=== PATIENT | male | born 1950 | race Caucasian/White ===

== ENCOUNTER 2022-12-28 09:59 | Outpatient (OUT) | payer MEDICARE, SELFPAY ==
[2022-12-29 04:07] LABS: PSA, Free 0.72 ng/mL; Prostate Specific Ag 2.2 ng/mL (0.0-4.0)
== END 2022-12-28 10:00 | disposition home or self-care (01) ==
LOC: LAB 10:07
PROVIDERS: Visit Provider Urology
DX: R97.20 Elevated prostate specific antigen [PSA] (principal); N40.1 Benign prostatic hyperplasia with lower urinary tract symptoms
CPT/HCPCS: 36415; 84153; 84154

== ENCOUNTER 2023-03-30 08:02 | Outpatient (OUT) | payer MEDICARE, SELFPAY ==
--- NOTE | 2023-03-30 08:07 | ECG_ITS ---
[facility] Test Date: 2023-03-30 Pat Name: MAURO HAWKINS Department: Room: - Gender: Male Certified Technician Specialist: : [id number] Requested By: VISHNU NOGUERA Order Number: [id number] Reading MD: CIRA MATTA Measurements Intervals [place] Rate: 69 P: 14 AL: 161 QRS: 20 QRSD: 98 T: 35 QT: 365 QTc: 394 Interpretive Statements SINUS RHYTHM No previous ECG available for comparison Electronically Signed On 03-31-2023 7:08:09 EDT by CIRA MATTA
--- NOTE | 2023-03-30 08:54 | P.GSHP_ITS ---
History of Present Illness History of Present Illness Chief complaint: BPH with obstruction Narrative: Patient presents for preadmission testing accompanied by his . The patient states he has an elevated PSA and nocturia. He denies Dysuria, hematuria, nausea, vomiting, abdominal pain, fever, or any other complaints. Review of Systems ROS Narrative REVIEW OF SYSTEMS: Negative except as stated in HPI, ten or more systems reviewed. Constitutional: No fever , chills, weakness ENT: No sore throat or epistaxis Cardiovascular: No edema, chest pain, palpitations, or activity intolerance Respiratory: No shortness of breath, cough, or wheezing Musculoskeletal: No joint pain or swelling Gastrointestinal: No abdominal pain, constipation, diarrhea, or vomiting Genitourinary: No dysuria or hematuria Neurological: No numbness, tingling, weakness, or headache Psychiatric: No mood changes PFSH PFS Medical History (Updated 03/30/23 @ 08:57 by Ashwini Paula NP) Benign prostatic hyperplasia with urinary obstruction and other lower urinary tract symptoms ?N40.1 - Benign prostatic hyperplasia with lower urinary tract symptoms (ICD- 10) ?N13.8 - Other obstructive and reflux uropathy (ICD-10) Elevated PSA ?R97.20 - Elevated prostate specific antigen [PSA] (ICD-10) High cholesterol ?E78.00 - Pure hypercholesterolemia, unspecified (ICD-10) Hypertension ?I10 - Essential (primary) hypertension (ICD-10) Prostatitis ?N41.9 - Inflammatory disease of prostate, unspecified (ICD-10) Surgical History (Updated 03/30/23 @ 08:30 by Ashwini Paula NP) H/O Achilles tendon repair ?Z98.890 - Other specified postprocedural states (ICD-10) History of appendectomy ?Z90.49 - Acquired absence of other specified parts of digestive tract (ICD- 10) History of arthroscopy of knee ?Z98.890 - Other specified postprocedural states (ICD-10) History of colonoscopy ?Z98.890 - Other specified postprocedural states (ICD-10) History of hernia repair ?Z98.890 - Other specified postprocedural states (ICD-10) ?Z87.19 - Personal history of other diseases of the digestive system (ICD-10) Family History (Updated 03/30/23 @ 08:30 by Ashwini Paula NP) Other Family history of diabetes mellitus Family history of leukemia Social History (Updated 03/30/23 @ 08:25 by Ashwini Paula NP) Within the past year, how often did you have a drink containing alcohol: monthly or less Smoking status: Former smoker Non-prescribed substance use: denies use Highest level of school completed/degree received: high school graduate Meds Home Medications and Allergies Home Medications Medication Instructions Recorded Confirmed Type amoxicillin 500 mg tablet 500 mg PO Q6H 03/30/23 03/30/23 History ibuprofen 800 mg tablet 800 mg PO TID 03/30/23 03/30/23 History lisinopril 40 mg tablet 40 mg PO DAILY 03/30/23 03/30/23 History multivitamin (Daily Multi-Vitamin 1 tab PO DAILY 03/30/23 03/30/23 History tablet) pravastatin 10 mg tablet 10 mg PO DAILY 03/30/23 03/30/23 History tamsulosin 0.4 mg capsule 0.4 mg PO BID 03/30/23 03/30/23 History turmeric root extract 150 tab PO 03/30/23 History mg-jovi root extract 25 mg chewable tablet Allergies Allergy/AdvReac Type Severity Reaction Status Date / Time No Known Drug Allergies Allergy Verified 03/30/23 08:21 Exam Narrative Exam Narrative: Constitutional: Awake, alert, comfortable, well-appearing, nontoxic, interactive, vital signs as charted Head: Normocephalic, atraumatic Neck: Supple, normal appearance, normal range of motion, no meningeal signs, no lymphadenopathy Respiratory: No respiratory distress, breath sounds clear Cardiovascular: Regular rate and rhythm, strong and regular heart tones Abdomen: Nontender, normal bowel sounds, soft, no CVA tenderness Musculoskeletal: Normal gait, no swelling or edema Skin: No rashes or induration, no lesions, only visible skin inspected Neuro: No neurological deficits, normal sensation Psychiatric: Oriented ?3, normal affect Assessment and Plan Assessment and Plan (1) Elevated PSA: (2) Benign prostatic hyperplasia with urinary obstruction and other lower urinary tract symptoms: Plan Cystoscopy/transurethral resection of the prostate scheduled with Dr. Maradiaga 04/11/2023.
[2023-03-30 08:57] LABS: Basophils Percent Auto 0.7 % (0.2-2.0); Eosinophils Absolute Auto 0.1 10^3/uL (0.0-0.7); Eosinophils Percent Auto 2.1 % (0.9-7.0); Hematocrit 34.8 % (42.0-54.0); Hemoglobin 11.7 g/dL (14.0-18.0); Immature Granulocytes Abs Auto 0.01 10^3/uL (0.00-0.03); Immature Granulocytes Pct Auto 0.2 % (0.0-0.5); Lymphocytes Absolute Auto 1.1 10^3/uL (1.2-3.8); Lymphocytes Percent Auto 25.8 % (20.5-60.0); Mean Corpuscular HGB Conc 33.6 g/dL (29.9-35.2); Mean Corpuscular Hemoglobin 32.2 pg (25.9-34.0); Mean Corpuscular Volume 95.9 fL (80.0-94.0); Mean Platelet Volume 9.1 fL (9.5-13.5); Monocytes Absolute Auto 0.5 10^3/uL (0.3-0.8); Monocytes Percent Auto 10.6 % (1.7-12.0); Neutrophils Absolute Auto 2.6 10^3/uL (1.4-6.5); Neutrophils Percent Auto 60.6 % (43.0-75.0); Platelet Count 214 10^3/uL (150-450); Red Blood Count 3.63 10^6/uL (4.70-6.10); White Blood Count 4.3 10^3/uL (4.0-11.0)
[2023-03-30 09:06] LABS: Anion Gap 8.4; BUN Creatinine Ratio 20.8; Calcium 8.7 mg/dL (8.5-10.1); Carbon Dioxide 26.1 mmol/L (21.0-32.0); Chloride 107 mmol/L (98-107); Estimated GFR (African America >60 (>=60); Estimated GFR (Non-African Ame >60 (>=60); Glucose 88 mg/dL (74-106); Potassium 4.5 mmol/L (3.5-5.1); Sodium 137 mmol/L (136-145)
[2023-03-30 09:18] LABS: Partial Thromboplastin Time 23.7 sec (22.3-36.2); Prothrombin Time 9.8 sec (9.0-11.6)
[2023-03-30 09:20] LABS: INR <0.93
== END 2023-03-30 08:03 | disposition home or self-care (01) ==
PROVIDERS: Visit Provider Urology
DX: Z01.810 Encounter for preprocedural cardiovascular examination (principal); Z01.812 Encounter for preprocedural laboratory examination; N40.1 Benign prostatic hyperplasia with lower urinary tract symptoms; E78.5 Hyperlipidemia, unspecified; R97.20 Elevated prostate specific antigen [PSA]; N13.9 Obstructive and reflux uropathy, unspecified
CPT/HCPCS: 80048; 85025; 85610; 85730; 93005; G0463

== ENCOUNTER 2023-04-28 14:50 | Outpatient (OUT) | payer MEDICARE, SELFPAY | END 2023-04-28 14:51 | disposition home or self-care (01) | LOC: PST 14:50 | PROVIDERS: Visit Provider Urology | DX: Z01.818 Encounter for other preprocedural examination (principal); N40.1 Benign prostatic hyperplasia with lower urinary tract symptoms; E78.5 Hyperlipidemia, unspecified; R97.20 Elevated prostate specific antigen [PSA]; I10 Essential (primary) hypertension ==

== ENCOUNTER 2023-05-04 12:09 | Outpatient (OUT) | payer MEDICARE, SELFPAY ==
--- OUTSIDE RECORDS SUMMARY | 2023-05-18 02:06 | XMS_ITS | CCD ---
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 Name Role Phone Ash MAGANA Primary Care Physician [phone] ROSA TERRAZAS Primary Care Physician Hans NOGUERA Attending Unavailable NOGUERA, Hans Duarte Referring Unavailable NOGUERA, Hans Duarte Attending Unavailable NOGUERA, Hans Duarte Attending Unavailable KLONK, KIMBERLYN R Referring Unavailable NOGUERA, Hans Duarte Attending Unavailable NOGUERA, Hans Duarte Attending Unavailable NOGUERA, Hans Duarte Attending Unavailable NOGUERA, Hans R Attending Unavailable NOGUERA, Hans R Referring Unavailable NOGUERA, Hans R Admitting Unavailable NOGUERA, Hans R Attending Unavailable SIDELL, ROSA W Referring Unavailable SIDELL, ROSA W Admitting Unavailable SIDELL, ROSA W Attending Unavailable SIDELL, ROSA W Admitting Unavailable SIDELL, ROSA W Attending Unavailable SIDELL, ROSA W Referring Unavailable KLONK, KIMBERLYN R Admitting Unavailable KLONK, KIMBERLYN R Attending Unavailable SIDELL, ROSA W Admitting Unavailable SIDELL, ROSA W Attending Unavailable SIDELL, ROSA W Attending Unavailable SIDELL, ROSA W Attending Unavailable SIDELL, ROSA W Attending Unavailable KLONK, KIMBERLYN R Attending Unavailable Allergies Allergy Classification Reported Allergen(s) Allergy Type Date of Onset Reaction(s) Facility (1 source) No Known Medication Allergies; Translations: [No Known Medication Allergies] Propensity to adverse reactions (disorder) [facility] Repository Medications Current Medications Medication Drug Class(es) Dates Sig (Normalized) Sig (Original) doxycycline hyclate 100 mg oral capsule (1 source) Tetracycline-class Drug Start: 11-15-2022 End: 12-15-2022 take 1 capsule by mouth every twelve hours doxycycline hyclate 100 mg Cap 100 mg = 1 cap(s), Oral, q12hr, X 30 day(s), # 60 cap(s), Refills(s) 0, Pharmacy: [facility]/pharmacy #[id number], 175, cm, 11/15/22 10:39:00 EDT, Height/Length Dosing, 102.5, kg, 11/15/22 10:39:00 EDT, Weight Dosing Start Date: 11/15/22 Stop Date: 12/15/22 Status: Ordered lisinopril 40 mg oral tablet (9 sources) Angiotensin Converting Enzyme Inhibitor Start: 12-06-2022 take 1 tablet by mouth once daily lisinopril 40 mg Tab 40 mg = 1 tab(s), Oral, Daily, # 90 tab(s), Refills(s) 1, Pharmacy: [facility]/pharmacy #[id number], 175, cm, 11/15/22 10:39:00 EDT, Height/Length Dosing, 102.5, kg, 11/15/22 10:39:00 EDT, Weight Dosing Start Date: 12/06/22 Status: Ordered Start: 06-09-2022 take 1 tablet by laly th once daily lisinopril 40 mg Tab 40 mg = 1 tab(s), Oral, Daily, # 90 tab(s), Refills(s) 1, Pharmacy: [facility]/pharmacy #[id number], 172.7, cm, 02/24/22 9:13:00 EDT, Height/Length Dosing, 106.3, kg, 02/24/22 9:13:00 EDT, Weight Dosing Start Date: 06/09/22 Status: Ordered Start: 12-14-2021 take 1 tablet by laly th once daily lisinopril 40 mg Tab 40 mg = 1 tab(s), Oral, Daily, # 90 tab(s), Refills(s) 1, Pharmacy: [facility]/pharmacy #[id number], 172.7, cm, 02/27/21 8:15:00 EDT, Height/Length Dosing, 103.8, kg, 02/27/21 8:15:00 EDT, Weight Dosing Start Date: 12/14/21 Status: Ordered nystatin [id number] unt/ml / triamcinolone acetonide 1 mg/ml topical cream (1 source) Polyene Antifungal, Corticosteroid Start: 02-24-2022 nystatin-triamcinolone Top Crm 60 gram 1 rae, Topical, BID, 60 gram, Refill(s) 1, [facility]/pharmacy #[id number], 172.7, cm, 02/24/22 9:13:00 EDT, Height/Length Dosing, 106.3, kg, 02/24/22 9:13:00 EDT, Weight Dosing Start Date: 02/24/22 Status: Ordered pravastatin sodium 10 mg oral tablet (9 sources) HMG-CoA Reductase Inhibitor Start: 12-06-2022 take 1 tablet by mouth once daily pravastatin 10 mg Tab 10 mg = 1 tab(s), Oral, Daily, # 90 tab(s), Refills(s) 1, Pharmacy: [facility]/pharmacy #[id number], 175, cm, 11/15/22 10:39:00 EDT, Height/Length Dosing, 102.5, kg, 11/15/22 10:39:00 EDT, Weight Dosing Start Date: 12/06/22 Status: Ordered Start: 06-09-2022 take 1 tablet by laly th once daily pravastatin 10 mg Tab 10 mg = 1 tab(s), Oral, Daily, # 90 tab(s), Refills(s) 1, Pharmacy: [facility]/pharmacy #[id number], 172.7, cm, 02/24/22 9:13:00 EDT, Height/Length Dosing, 106.3, kg, 02/24/22 9:13:00 EDT, Weight Dosing Start Date: 06/09/22 Status: Ordered Start: 12-07-2021 take 1 tablet by laly once daily pravastatin 10 mg Tab 10 mg = 1 tab(s), Oral, Daily, # 90 tab(s), Refills(s) 1, Pharmacy: [facility]/pharmacy #[id number], 172.7, cm, 02/27/21 8:15:00 EDT, Height/Length Dosing, 103.8, kg, 02/27/21 8:15:00 EDT, Weight Dosing Start Date: 12/07/21 Status: Ordered sildenafil 50 mg oral tablet (5 sources) Phosphodiesterase 5 Inhibitor Start: 07-05-2022 take 1 tablet by mouth once daily as needed sildenafil 50 mg Tab 50 mg = 1 tab(s), Oral, Daily, PRN for erectile dysfunction, # 20 tab(s), Refills(s) 0, Pharmacy: [facility] [id number], 172, cm, 07/05/22 11:33:00 EST, Height/Length Dosing, 103.4, kg, 07/05/22 11:33:00 EST, Weight Dosing Start Date: 07/05/22 Status: Ordered tadalafil 20 mg oral tablet (3 sources) Phosphodiesterase 5 Inhibitor Start: 12-06-2022 take 1 tablet by mouth once daily as needed tadalafil 20 mg Tab 20 mg = 1 tab(s), Oral, Daily, PRN erectile dysfunction, # 10 tab(s), Refills(s) 0, Pharmacy: [facility] [id number], 175, cm, 11/15/22 10:39:00 EDT, Height/Length Dosing, 102.5, kg, 11/15/22 10:39:00 EDT, Weight Dosing Start Date: 12/06/22 Status: Ordered Start: 09-23-2022 take 1 tablet by laly once daily as needed tadalafil 20 mg Tab 20 mg = 1 tab(s), Oral, Daily, PRN erectile dysfunction, # 10 tab(s), Refills(s) 0, Pharmacy: [facility] [id number], 172, cm, 09/23/22 11:20:00 EDT, Height/Length Dosing, 101.5, kg, 09/23/22 11:20:00 EDT, Weight Dosing Start Date: 09/23/22 Status: Ordered tamsulosin hydrochloride 0.4 mg oral capsule (8 sources) alpha-Adrenergic Norberto Start: 11-15-2022 End: 11-10-2023 take 1 capsule by mouth twice daily tamsulosin 0.4 mg Cap 0.4 mg = 1 cap(s), Oral, BID, X 90 day(s), # 180 cap(s), Refills(s) 3, Pharmacy: [facility]/pharmacy #[id number], 175, cm, 11/15/22 10:39:00 EDT, Height/Length Dosing, 102.5, kg, 11/15/22 10:39:00 EDT, Weight Dosing Start Date: 11/15/22 Stop Date: 11/10/23 Status: Ordered Start: 07-05-2022 take 1 capsule by mo [facility] once daily tamsulosin 0.4 mg Cap 0.4 mg = 1 cap(s), Oral, Daily, # 90 cap(s), Refills(s) 0, [id number], 172, cm, 07/05/22 11:33:00 EST, Height/Length Dosing, 103.4, kg, 07/05/22 11:33:00 EST, Weight Dosing Start Date: 07/05/22 Status: Ordered Completed/Discontinued Medications Medication Drug Class(es) Dates Sig (Normalized) Sig (Original) cephalexin 500 mg oral capsule (1 source) Cephalosporin Antibacterial Start: 03-07-2023 take 1 capsule by mouth once daily Keflex 500 mg Cap 500 mg = 1 cap(s), Oral, Daily, Take 1 capsule the day before the procedure and 1 capsule after the procedure, # 2 cap(s), Refills(s) 0, [id number], 175, cm, 02/18/23 12:58:00 EDT, Height/Length Dosing, 98.9, kg, 02/14/23 10:30:00 EDT, Weight Dosing Start Date: 03/07/23 Status: Ordered Problems Problem Classification Problem Date Documented Da te Episodic/Chronic Abdominal pain (12 sources) Right lower quadrant pain; Translations: [Right lower quadrant pain] Onset: 09-07-2022 Episodic Disorders of lipid metabolism (10 sources) Familial hypercholesterolemi a; Translations: [Familial hypercholesterolemi a] Onset: 02-23-2022 Chronic Essential hypertension (10 sources) Essential hypertension; Translations: [Essential (primary) hypertension] Onset: 02-23-2022 Chronic Genitourinary symptoms and ill-defined conditions (20 sources) Dysuria; Translations: [Genitourinary symptoms] Onset: 07-05-2022 02-25-2020 Episodic Hyperplasia of prostate (8 sources) Benign prostatic hypertrophy with outflow obstruction; Translations: [Benign prostatic hyperplasia with lower urinary tract symptoms] Onset: 11-15-2022 Chronic Other ear and sense organ disorders (10 sources) Hearing loss; Translations: [Other specified hearing loss, unspecified ear] Onset: 02-23-2022 Chronic Other injuries and conditions due to external causes (1 source) Injury of left foot; Translations: [Unspecified injury of left foot, initial encounter] Onset: 09-07-2022 Episodic Other male genital disorders (12 sources) Male erectile dysfunction, unspecified; Translations: [Erectile dysfunction] Onset: 07-05-2022 Chronic Other male genital disorders (2 sources) H/O: male genital disorder; Translations: [Personal history of other diseases of male genital organs] Onset: 11-15-2022 Episodic Other male genital disorders (3 sources) History of prostatitis 11-15-2022 Episodic Other nutritional; endocrine; and metabolic disorders (1 source) Obese class II; Translations: [Body mass index (BMI) 35.0-35.9, adult] Onset: 02-24-2022 Chronic Other nutritional; endocrine; and metabolic disorders (1 source) Obesity; Translations: [Other obesity due to excess calories] Onset: 02-23-2022 Chronic Other nutritional; endocrine; and metabolic disorders (9 sources) Body mass index 30+ - obesity 02-24-2022 Chronic Other nutritional; endocrine; and metabolic disorders (9 sources) Simple obesity 02-25-2020 Chronic Other nutritional; endocrine; and metabolic disorders (2 sources) Obese class I; Translations: [Body mass index (BMI) 34.0-34.9, adult] Onset: 07-05-2022 Chronic Other screening for suspected conditions (not mental disorders or infectious disease) (7 sources) Procedure carried out on subject; Translations: [Encounter for screening for other disorder] Onset: 02-23-2022 Episodic Residual codes; unclassified (1 source) Refused procedure - parent's wish; Translations: [Procedure and treatment not carried out because of patient's decision for other reasons] Onset: 02-24-2022 Episodic Screening and history of mental health and substance abuse codes (9 sources) Tobacco smoking behavior - finding 02-25-2020 Chronic Screening and history of mental health and substance abuse codes (10 sources) H/O: Disorder; Translations: [Personal history of nicotine dependence] Onset: 02-23-2022 Episodic Unclassified (6 sources) Injury of left foot 09-07-2022 Unclassified (3 sources) Finding of sensation of bladder 11-15-2022 Results Test Name Value Interpretation Reference Range Facil ity Pathology Noteon 05-13-2023 Pathology Note [id number]#1. 00TIFF Normal [facility] Operative Reporton Operative Report [id number]#1.00TIFF Normal [facility] ECG 12-Leadon 04-01-2023 ECG 12-Lead [id number]#1.00T IFF Normal [facility] Lab Reportson 03-30-2023 Lab Reports [id number]#1.00T IFF Normal [facility] Lab Reports [id number]#1.00T IFF Normal [facility] Consent for Procedure/Surger yon 03-17-2023 Consent for Procedure/Surgery [id number]#1.00TIFF [facility] Consent for Procedure/Surger yon 03-08-2023 Consent for Procedure/Surgery [id number]#1.00TIFF [facility] Consent for Treatmenton 02-27 Consent for Treatment [id number]#1.00TIFF [facility] IntraOperative Documentson 1 IntraOperative Documents [id number]#1.00TIFF [facility] IntraOperative Documents [id number]#1.00TIFF [facility] Main OR Intraoperative Recor don 03-08-2023 Main OR Intraoperative Record IntraOp Document Type FTURO Summary Primary Physician: Hans NOGUERA MD Finalized Date/Time: 03/08/23 12:14:01 Pt. Name: MAURO SILVERIO D.O.B./Sex: 1950 Male Med Rec #: [id number] Physician: Hans NOGUERA MD Financial #: [id number] Pt. Type: O Room/Bed: / Admit/Disch: 03/08/23 09:34:54 - Institution: Case Times FTURO Entry 1 Patient Times In Room 03/08/23 11:59:00 Out Room 03/08/23 12:10:00 Procedure Times Start 03/08/23 12:03:00 Stop 03/08/23 12:06:00 Anesthesia Times Last Modified By: Dulce Ecsobar RN 03/08/23 12:10:19 Case Attendance FTURO Entry 1 Entry 2 Entry 3 Case Attendee CHUCKIE WATKINS, Hans He SHOWCASE TRIMMER, Dulce Ma RN Role Performed Surgeon - Primary Scrub - Primary Handstitching Machine Armhole Feller - Primary Time In 03/08/23 11:59:00 03/08/23 11:59:00 03/08/23 11:59:00 Time Out 03/08/23 12:10:00 03/08/23 12:10:00 03/08/23 12:10:00 Procedure CYSTOSCOPY LOCAL(.) CYSTOSCOPY LOCAL(.) CYSTOSCOPY LOCAL(.) Comments Last Modified By: Dulce Escobar RN, RN, Kimberly Y Barbee RN, Kimberly Y 03/08/23 12:10:20 03/08/23 12:10:20 03/08/23 12:10:20 Surgical Procedures FTURO Entry 1 Procedure Description Procedure CYSTOSCOPY LOCAL Modifiers . Surgeon Description CYSTOSCOPY LOCAL Primary Procedure Yes Primary Surgeon Hans NOGUERA MD Start 03/08/23 12:03:00 Stop 03/08/23 12:06:00 Anesthesia Type Local Surgical Service Urology Wound Class 2 - Clean-Contaminated Last Modified By: Dulce Escobar RN 03/08/23 12:06:53 General Case Data FTURO Pre-Care Text: Classifies surgical wound, implements aseptic technique, initiates traffic control Entry 1 Case Information OR URO 1 FT Case Level None Wound Class 2 - Clean-Contaminated Specialty Urology Preop Diagnosis BPH WITH OBSTRUCTION, Postop Same As Preop Yes INCOMPLETE EMPTYING Postop Diagnosis BPH WITH OBSTRUCTION, Outcomes Met? Yes INCOMPLETE EMPTYING Last Modified By: Dulce Escobar RN 03/08/23 11:57:34 Post-Care Text: The patient is free from signs and symptoms of infection EU IntraOp - FTURO Pre-Care Text: Implements protective measures prior to operative or invasive procedure, confirms identity before the operative or invasive procedure, verifies operative procedure, surgical site, and laterality Entry 1 EU Perioperative Protocols Procedure(s) CYSTOSCOPY LOCAL(.) Patient Identity Birthday, ID Band Verified (select at Check, Patient least 2): Participation Consents / H and P HandP, Surgery/Procedure Operative Site N/A Verified Consent Marking Verified Surgical Site Yes Laterality Verified Yes Verified Procedure Verified Yes Correct Patient Yes Position Verified Availability Equipment, Medication Time Out CHUCKIE WATKINS, Hans Duarte, Verified (If Participants Dulce He CST Applicable) Shawn Motta RN, Kimberly Y Time Out Complete 03/08/23 12:00:00 Allergies Reviewed? Yes Allergies Reviewed Self/Patient With Body Position Supine Prep Area PENIS Prep Agents Betadine Solution Skin. Condition Dry, Warm, Unable to Description UNABLE TO VISUALIZE DUE Visualize TO PATIENT PARTIALLY CLOTHED Additional None Specimens Collected Vitals - EU Blood Pressure 150/80 Pulse 67 bpm Respirations 16 br/min SPO2 97 % EBL 0 IandO - EU Total Intake 0 mL Total Output 0 mL Outcomes Met? Yes Last Modified By: Dulce Escobar RN 03/08/23 12:01:28 Post-Care Text: The patient is free from signs and symptoms of injury caused by extraneous objects Sign Out FTURO Entry 1 Before Patient Leaves OR Nurse verbally Yes Nurse verbally Yes confirms with the confirms with the team the name of team that the procedure(s) instrument, sponge, recorded and needle counts are correct (or N/A) Nurse verbally n/a Nurse verbally Yes confirms with the confirms with the team how the team whether there specimen is labeled are any equipment (including patient problems to be name), if applicable addressed Sign Out Complete 03/08/23 12:06:00 Last Modified By: Dulce Escobar RN 03/08/23 12:06:52 Case Comments Finalized By: Dulce Escobar RN Document Signatures Signed By: Dulce Escobar RN 03/08/23 12:10 Dulce Escobar RN 03/08/23 12:14 Normal [facility] Main OR Preoperative Recordo n 03-08-2023 Main OR Preoperative Record Holding Area Document Type FTURO Summary Primary Physician: Hans NOGUERA MD Finalized Date/Time: 03/08/23 12:00:00 Pt. Name: MAURO SILVERIO /Sex: 1950 Male Med Rec #: [id number] Physician: Hans NOGUERA MD Financial #: [id number] Pt. Type: O Room/Bed: / Admit/Disch: 03/08/23 09:34:54 - Institution: Case Times Holding FTURO Pre-Care Text: Verifies consent for planned procedure, identifies individual values and wishes concerning care, includes family members in perioperative teaching Secures patient's records' belongings, and valuables, maintains patient's dignity and privacy, and maintains patient confidentiality Entry 1 In Holding 03/08/23 11:43:00 Outcomes Met? Yes Last Modified By: Mar Spivey LPN 03/08/23 11:43:18 Post-Care Text: The patient participates in decisions affecting his or her perioperative plan of care The patient's right to privacy is maintained Surgery Checklist FTURO Entry 1 Patient Birthday, ID Band Procedure Surgical Consent, With Identification: Check, Patient Verification: Patient Participation NPO after Midnight: n/a Date/Time: 03/08/23 11:43:00 Personal Items: Dentures, Glasses, Personal Items glasses, upper partial Jewelry Comment: plate, arthrtic band, watch Complaints of Pain: No Skin Integrity Intact, [place], Warm, & Dry Vitals - EU Blood Pressure 150/80 Pulse 67 bpm Respirations 16 br/min SPO2 96 % RN Reviewed Yes Last Modified By: Dulce Escobar RN 03/08/23 11:59:58 General Comments: Temp 36.7 Finalized By: Dulce Escobar RN Document Signatures Signed By: Mar Spivey LPN 03/08/23 11:46 Dulce Escobar RN 03/08/23 12:00 Normal [facility] Operative Reporton 3 Operative Report Patient: LISA SILVERIO Age: 73 years Sex: Male : 1950 Associated Diagnoses: None Author: Hans NOGUERA MD Procedure Operative Information Details: Date/ Time: 03/08/2023 12:11:00. Pre-Op Dx: BPH w/ LUTS - N40.1, Incomplete Bladder Emptying - R39.14. Post-Op Dx: Same. Anesthesia Type: Local. Procedure: Local Cystoscopy. Complications: None. Risks/Benefits/Informed Consent: Surgical risks, benefits, details of the procedure have been explained to the patient, Full informed consent has been obtained. Intraoperative Information Prepped: Patient is brought back to the endoscopy suite, Patient is placed in supine position, Patient prepped in the usual fashion with Betadine solution, 2% Xylocaine Jelly is placed per Urethra, After waiting several minutes the Cystoscope is introduced. The Urethra is: Normal. The Prostatic Urethra is: Obstructed, Median Lobe, He has trilobar obstruction with large high median lobe.. The Bladder is: Trabeculated (Severe (3), No bladder tumors. High-grade trabeculation with a few open diverticuli.). The ureteral orifices: Show efflux of clear urine. Devices Implanted: None. Removal: Cystoscope is removed, The patient tolerated it well. Postoperative Information Discharge: Patient is discharged home with antibiotic coverage, Follow up arranged. Normal [facility] Comment on above: Result Comment: Elec tronically Signed By: Hans NOGUERA MD\.br\Date and Time Signed: 03/08/23 12:12 EDT Ambulatory Visit Summaryon 0 02-14-2023 Ambulatory Visit Summary MAURO SILVERIO :1950 Visit Date:02/14/2023 Ambulatory Visit Instructions Your Diagnosis Elevated PSA BPH with urinary obstruction ED (erectile dysfunction) Feeling of incomplete bladder emptying History of prostatitis RLQ abdominal pain Your Care Team Attending Physician - Hans NOGUERA MD Primary Care Physician - ROSA TERRAZAS CNP This Is Your Medications List tamsulosin (tamsulosin 0.4 mg Cap) Contact prescribing physician if questions or concerns lisinopril (lisinopril 40 mg Tab) pravastatin (pravastatin 10 mg Tab) tadalafil (tadalafil 20 mg Tab) Procedures Performed Acute tear of lateral meniscus of left knee (10/20/2020), Colonoscopy abnormal (04/05/2019), Achilles tendon repair, Appendectomy, Hernia. Discharge Vitals Heart Rate (Peripheral) 80 Respiratory Rate 16 Blood Pressure 132/74 Height 175 cm Height 69 in Weight 98.9 kg Weight 217.58 lb BMI 32.29 What to do next Scheduled Follow-Up Appointments 2022 8:00 AM EDT Where: [facility] [place] [facility] Patient Educationon 02-15-20 Patient Education Urology Benign Prostatic Hyperplasia Benign prostatic hyperplasia (BPH) is an enlarged prostate gland that is caused by the normal aging process. The prostate may get bigger as a man gets older. The condition is not caused by cancer. The prostate is a walnut-sized gland that is involved in the production of semen. It is located in front of the rectum and below the bladder. The bladder stores urine. The urethra carries stored urine out of the body. An enlarged prostate can press on the urethra. This can make it harder to pass urine. The buildup of urine in the bladder can cause infection. Back pressure and infection may progress to bladder damage and kidney (renal) failure. What are the causes? This condition is part of the normal aging process. However, not all men develop problems from this condition. If the prostate enlarges away from the urethra, urine flow will not be blocked. If it enlarges toward the urethra and compresses it, there will be problems passing urine. What increases the risk? This condition is more likely to develop in men older than 50 years. What are the signs or symptoms? Symptoms of this condition include: ? Getting up often during the night to urinate. ? Needing to urinate frequently during the day. ? Difficulty starting urine flow. ? Decrease in size and strength of your urine stream. ? Leaking (dribbling) after urinating. ? Inability to pass urine. This needs immediate treatment. ? Inability to completely empty your bladder. ? Pain when you pass urine. This is more common if there is also an infection. ? Urinary tract infection (UTI). How is this diagnosed? This condition is diagnosed based on your medical history, a physical exam, and your symptoms. Tests will also be done, such as: ? A post-void bladder scan. This measures any amount of urine that may remain in your bladder after you finish urinating. ? A digital rectal exam. In a rectal exam, your health care provider checks your prostate by putting a lubricated, gloved finger into your rectum to feel the back of your prostate gland. This exam detects the size of your gland and any abnormal lumps or growths. ? An exam of your urine (urinalysis). ? A prostate specific antigen (PSA) screening. This is a blood test used to screen for prostate cancer. ? An ultrasound. This test uses sound waves to electronically produce a picture of your prostate gland. Your health care provider may refer you to a specialist in kidney and prostate diseases (urologist). How is this treated? Once symptoms begin, your health care provider will monitor your condition (active surveillance or watchful waiting). Treatment for this condition will depend on the severity of your condition. Treatment may include: ? Observation and yearly exams. This may be the only treatment needed if your condition and symptoms are mild. ? Medicines to relieve your symptoms, including: ? Medicines to shrink the prostate. ? Medicines to relax the muscle of the prostate. ? Surgery in severe cases. Surgery may include: ? Prostatectomy. In this procedure, the prostate tissue is removed completely through an open incision or with a laparoscope or robotics. ? Transurethral resection of the prostate (TURP). In this procedure, a tool is inserted through the opening at the tip of the penis (urethra). It is used to cut away tissue of the inner core of the prostate. The pieces are removed through the same opening of the penis. This removes the blockage. ? Transurethral incision (TUIP). In this procedure, small cuts are made in the prostate. This lessens the prostate's pressure on the urethra. ? Transurethral microwave thermotherapy (TUMT). This procedure uses microwaves to create heat. The heat destroys and removes a small amount of prostate tissue. ? Transurethral needle ablation (TUNA). This procedure uses radio frequencies to destroy and remove a small amount of prostate tissue. ? Interstitial laser coagulation (ILC). This procedure uses a laser to destroy and remove a small amount of prostate tissue. ? Transurethral electrovaporization (TUVP). This procedure uses electrodes to destroy and remove a small amount of prostate tissue. ? Prostatic urethral lift. This procedure inserts an implant to push the lobes of the prostate away from the urethra. Follow these instructions at home: ? Take hkga-uhs-qbfzkka and prescription medicines only as told by your health care provider. ? Monitor your symptoms for any changes. Contact your health care provider with any changes. ? Avoid drinking large amounts of liquid before going to bed or out in public. ? Avoid or reduce how much caffeine or alcohol you drink. ? Give yourself time when you urinate. ? Keep all follow-up visits. This is important. Contact a health care provider if: ? You have unexplained back pain. ? Your symptoms do not get better with treatment. ? You develop side effects from the medicine (more content not included)... Normal [facility] Urology Office/Clinic Noteon 02-14-2023 Urology Office/Clinic Note Chief Complai nt 3m PSA HPI Staff 3 mos f/u w/ repeat PSA F&T (drawn after 1m abx therapy) Previous DX:Elevated PSA, BPH w/Urinary Obstruction, ED, Feeling of Incomplete Bladder Emptying, Hx of Prostatitis, and RLQ Abdominal Pain. Tamsulosin 4mg BID(Increased from QD at prior OV) and Doxycycline 100mg BID [id number] for Prostatitis Per last encounter, pt no longer Tadalfil therapy. However per EMR record, Tadalafil refilled by PCP on 12/06/22. Pt states he is unable to provide urine specimen today, due to voiding before he arrived at our office. Previous PSA on 09/07/22 was 7.9. Current PSA on 12/28/22 was 2.2 and 32.7%. RLQ & Testicular pain has subsided since finishing abx therapy. Still getting up 2-5x/night. Stream still comes and goes . Occasionally has to strain to void. Pain at beginning of stream has subsided. Increased urgency. Occasional post void dribbling. States he is still needing PCP due to providers leaving offices. Was told by PRW at last encounter that he would find someone for him. History of Present Illness Tests reviewed: reviewed UA and PSA. I have reviewed the previous health record information and history for this patient from . I have reviewed and verified the staff HPI to be accurate for this encounter. There have been no associated fever, chills, flank pain, or blood in the urine. Denies any urinary infections since last encounter. Review of Systems PHQ Score Initial Depression Screen Score: 0 ROS - Provider Constitutional: denies weight loss, denies hot flashes. Eyes: denies eye problems. Gastrointestinal: denies nausea, denies vomiting. Cardiovascular: denies chest pain or angina. Integumentary: no dryness Musculoskeletal: denies musculoskeletal symptoms. ENMT: denies otolaryngeal symptoms. Respiratory: no shortness of breath. Heme/Lymph: denies easy bleeding tendency, denies easy bruising tendency. Psychiatric: no confusion, no anxiety. Genitourinary: See HPI. Physical Exam Vitals & Measurements HR: 80(Peripheral) RR: 16 BP: 132/74 HT: 69 in HT: 175 cm WT: 98.9 kg WT: 217.58 lb BMI: 32.29 General Appearance: alert, no distress, well nourished, well developed male. Genitourinary: normal scrotum, normal testes, normal urethra, normal epididymis, normal vas deferens/spermatic cord. Flank Pain: none. Bladder: nonpalpable. Assessment/Plan 1. Elevated PSA (R97.20: Elevated prostate specific antigen [PSA]) No fam hx of Prostate CA. PSA 09/07/22 - 7.9 (1st PSA) 12/28/22 - 2.2 & 32.7% (after abx for #5) Discussed PSA levels with pt, decreased from previous. Will continue to monitor. 2. BPH with urinary obstruction (N40.1: Benign prostatic hyperplasia with lower urinary tract symptoms) CT AP w con 09/16/22 [facility] - Prostate volume 48 cc. Mild mass effect on the floor of the urinary bladder by enlarged prostate. Pt is currently taking Tamsulosin 0.4mg BID, increased from QD at prior OV. Still getting up 2-5x/night. Stream still comes and goes . Occasionally has to strain to void. Pain at beginning of stream has subsided. Increased urgency. Occasional post void dribbling. Discussed the risks and benefits of pos procedures with pt. Discuss doing Urodynamics and having a cysto done to determine which procedure(s) would be best for the pt. Follow up after cysto and Uros. All questions/concerns were discussed. Pt to call the office if he encounters any issues prior. Pt acknowledges understanding. -Will schedule cysto and Urodynamics. The risks and benefits for cystoscopy have been discussed. The risks include bleeding, infection, and irritation of the bladder and urinary channel, among others. The patient, after being informed of procedural details and after questions have been answered, wishes to proceed. Full informed consent has been obtained. Will order Local anesthesia. -Will send Kfelex 500mg to pharm on file. 3. ED (erectile dysfunction) (N52.9: Male erectile dysfunction, unspecified) Tried Tadalafil 20 mg PRN, d/c taking because he wasn't getting the result that he wanted. Able to achieve an erection but unable to maintain it. Pt states he has a script for ED, was not sure if he could start this. Advised pt that he can start this. 4. Feeling of incomplete bladder emptying (R39.14: Feeling of incomplete bladder emptying) PVR (82 ml). Occasionally voids then can void shortly later. Still does not feel empty. 5. History of prostatitis (Z87.438: Personal history of other diseases of male genital organs) Diagnosed with BPH by MARIA ELENA in high school, has not had MARIA ELENA since. Treated for prostatitis at this time, Lost 20 lbs. Pt was experiencing urgency with urination and BMs, noted on prior office note. Explained likelihood of chronic prostatitis, which would cause PSA elevation and also worsen ED. Was tx'd with Doxycycline 100mg BID x30 days. 6. RLQ abdominal pain (R10.31: Right lower quadrant pain) Hx of hernia at 22 yo. 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 Normal [facility] Comment on above: Result Comment: Elec tronically Signed By: Hans NOGUERA MD\.br\Date and Time Signed: 02/14/23 11:34 EDT\.br\Electronically Co-Signed By: China Francis.br\Date and Time Co-Signed: 02/14/23 11:31 EDT Lab Reportson 12-29-2022 Lab Reports [id number] D:127 Normal [facility] Ambulatory Visit Summaryon 0 11-15-2022 Ambulatory Visit Summary MAURO SILVERIO :1950 Visit Date:11/15/2022 Ambulatory Visit Instructions Your Diagnosis Elevated PSA BPH with urinary obstruction ED (erectile dysfunction) Feeling of incomplete bladder emptying History of prostatitis RLQ abdominal pain Tests Performed Urnls Dip Stick Auto w/o Microscopy POC 36721 Your Care Team Attending Physician - CHUCKIE WATKINS, Hans Duarte Primary Care Physician - ROSA TERRAZAS CNP Referring Physician - Kimberlyn Finney NP This Is Your Medications List doxycycline (doxycycline hyclate 100 mg Cap) tamsulosin (tamsulosin 0.4 mg Cap) Contact prescribing physician if questions or concerns lisinopril (lisinopril 40 mg Tab) pravastatin (pravastatin 10 mg Tab) tadalafil (tadalafil 20 mg Tab) Procedures Performed Acute tear of lateral meniscus of left knee (10/20/2020), Colonoscopy abnormal (04/05/2019), Achilles tendon repair, Appendectomy, Hernia. Discharge Vitals Heart Rate (Peripheral) 85 Respiratory Rate 16 Blood Pressure 135/88 Height 175 cm Height 69 in Weight 102.5 kg Weight 225.5 lb BMI 33.47 What to do next Scheduled Follow-Up Appointments 2022 8:00 AM EDT Where: [facility] [place] [facility] Formson 11-15-2022 Forms [id number]: 127 Normal [facility] Patient Educationon 11-16-19 23 Patient Education Infectious Disease Prostatitis Prostatitis is swelling or inflammation of the prostate gland, also called the prostate. This gland is about 1.5 inches wide and 1 inch high, and it is involved in making semen. The prostate is located below a man's bladder, in front of the rectum. There are four types of prostatitis: ? Chronic prostatitis (CP), also called chronic pelvic pain syndrome (CPPS). This is the most common type of prostatitis. It is associated with increased muscle tone in the area between the hip bones (pelvic area), around the prostate. This type is also known as a pelvic floor disorder. ? Chronic bacterial prostatitis. This type usually results from an acute bacterial infection in the prostate gland that keeps coming back or has not been treated properly. The symptoms are less severe than those caused by acute bacterial prostatitis, which lasts a shorter time. ? Asymptomatic inflammatory prostatitis. This type does not have symptoms and does not need treatment. This is diagnosed when tests are done for other disorders of the urinary tract or reproductive tract. ? Acute bacterial prostatitis. This type starts quickly and results from an acute bacterial infection in the prostate gland. It is usually associated with a bladder infection, high fever, and chills. This is the least common type of prostatitis. What are the causes? Bacterial prostatitis is caused by an infection from bacteria. Chronic nonbacterial prostatitis may be caused by: ? Factors related to the nervous system. This system includes thebrain, spinal cord, and nerves. ? An autoimmune response. This happens when the body's disease-fighting system attacks healthy tissue in the body by mistake. ? Psychological factors. These have to do with how the mind works. The causes of the other types of prostatitis are usually not known. What are the signs or symptoms? Symptoms of this condition depend on the type of prostatitis you have. Acute bacterial prostatitis Symptoms may include: ? Pain or burning during urination. ? Frequent and sudden urges to urinate. ? Trouble starting to urinate. ? Fever. ? Chills. ? Pain in your muscles or joints, lower back, or lower abdomen. Other types of prostatitis Symptoms may include: ? Sudden urges to urinate, or urinating often. ? Trouble starting to urinate. ? Weak urine stream. ? Dribbling after urination. ? Discharge coming from the penis. ? Pain in the testicles, the penis, or the tip of the penis. ? Pain in the area in front of the rectum and below the scrotum (perineum). ? Pain when ejaculating. How is this diagnosed? This condition may be diagnosed based on: ? A physical and medical exam. ? A digital rectal exam. For this, the health care provider may use a finger to feel the prostate. ? A urine test to check for bacteria. ? A semen sample or blood tests. ? Ultrasound. ? Urodynamic tests to check how your body handles urine. ? Cystoscopy to look inside your bladder or inside the part of your body that drains urine from the bladder (urethra). How is this treated? Treatment for this condition depends on the type of prostatitis. Treatment may involve: ? Medicines to relieve pain or inflammation, or to help relax your muscles. ? Physical therapy. ? Heat therapy. ? Biofeedback. These techniques help you control certain body functions. ? Relaxation exercises. ? Antibiotic medicine, if your condition is caused by bacteria. ? Sitz baths. These warm water baths help to relax your pelvic floor muscles, which helps to relieve pressure on the prostate. Follow these instructions at home: Medicines ? Take tzeh-ida-xgdalva and prescription medicines only as told by your health care provider. ? If you were prescribed an antibiotic medicine, take it as told by your health care provider. Do not stop using the antibiotic even if you start to feel better. Managing pain and swelling ? Take sitz baths as directed by your health care provider. For a sitz bath, sit in warm water that is deep enough to cover your hips and buttocks. ? If directed, apply heat to the affected area as often as told by your health care provider. Use the heat source that your health care provider recommends, such as a moist heat pack or a heating pad. ? Place a towel between your skin and the heat source. ? Leave the heat on for 20?30 minutes. ? Remove the heat if your skin turns bright red. This is especially important if you are unable to feel pain, heat, or cold. You may have a greater risk of getting burned. General instructions ? Do exercises as told by your health care provider, if you were prescribed physical therapy, biofeedback, or relaxation exercises. ? Keep all follow-up visits as told by your health care provider. This is important. Where to find more information ? National [place] of Diabetes and Digestive and Kidney Diseases: (more content not included)... Normal [facility] Urology Office/Clinic Noteon 11-15-2022 Urology Office/Clinic Note Chief Complai nt elevated PSA HPI Staff Referral for elevated PSA. Current PSA done 09/07/22 is 7.9. Pt states that he was diagnosed by digital rectal exam with BPH when he was in high school. He has had no other MARIA ELENA's ever and this is his first PSA ever. PVR today is 82ml. Pt is taking Tamsulosin 0.4mg QD and has been prescribed Tadalafil 20mg but states that he is no longer taking it because he's not getting the result that he wanted. Dysuria: pt state that he has a pain in his lower abdomen until he starts to void. Incomplete bladder emptying: pt feels he is not emptying Hematuria: no blood recently Frequency: not during the day only when he goes to bed Urgency: no Nocturia: no less than 3x Stream: no straining Leaking: only if he waits too long Post void dripping: yes Wearing pads/ Depends: no Urge incontinence: rare but happened about a month ago Stress incontinence: no Incontinence without Sensory Awareness: no Abdominal pain: has a pain in his lower abdomen until he starts to urinate. Flank pain: no Sexual complaints: pt states that he is able to achieve an erection but unable to keep it. History of Present Illness Tests reviewed: reviewed UA, referral records, PSA. I have reviewed the previous health record information and history for this patient. I have reviewed and verified the staff HPI to be accurate for this encounter. There have been no associated fever, chills, flank pain, or blood in the urine. Denies any urinary infections since last encounter. Review of Systems PHQ Score Initial Depression Screen Score: 0 ROS - Provider Constitutional: denies weight loss, denies hot flashes. Eyes: denies eye problems. Gastrointestinal: denies nausea, denies vomiting. Cardiovascular: denies chest pain or angina. Integumentary: no dryness Musculoskeletal: denies musculoskeletal symptoms. ENMT: denies otolaryngeal symptoms. Respiratory: no shortness of breath. Heme/Lymph: denies easy bleeding tendency, denies easy bruising tendency. Psychiatric: no confusion, no anxiety. Genitourinary: See HPI. Physical Exam Vitals & Measurements HR: 85(Peripheral) RR: 16 BP: 135/88 HT: 69 in HT: 175 cm WT: 102.5 kg WT: 225.5 lb BMI: 33.47 General Appearance: alert, no distress, well nourished, well developed male. Head: normocephalic . Eyes: normal orbit and globe. ENMT: normal examination of external ears. Chest: Lungs CTA, respirations non labored. Cardiovascular: regular rate and rhythm. Abdomen: soft, non distended, no tenderness, no mass or organomegaly, no hernia. Genitourinary: normal scrotum, normal testes, normal urethra, normal epididymis, normal vas deferens/spermatic cord. Flank Pain: none. Bladder: nonpalpable. Penis: normal shaft, normal glans. Prostate: normal prostate, estimated weight 40 gms, no hard nodule observed. Lymph Nodes: unremarkable palpation of the cervical area. Skin: warm, dry, no bruising. Psychiatric: cooperative, affect appropriate for age, normal judgement, euthymic mood. Assessment/Plan Mauro is a 72 yo male new pt referred from [facility] due to elevated PSA. 1. Elevated PSA (R97.20: Elevated prostate specific antigen [PSA]) PSA: 09/07/22 - 7.9, pt's first PSA. No family hx of prostate ca. MARIA ELENA today 40 gm, no nodules. Follow up 3 mos with PSA or sooner if needed. Pt understands and agrees with plan. -Repeat PSA after completing abx course for #5. 2. BPH with urinary obstruction (N40.1: Benign prostatic hyperplasia with lower urinary tract symptoms) CT AP w con 09/16/22 [facility] - Prostate volume 48 cc. Mild mass effect on the floor of the urinary bladder by enlarged prostate. UA today negative for blood and infection. Taking Flomax 0.4 mg qd, started a few mos ago. Stream comes and goes. Sometimes he has pain before starting stream. [place] improvement with Flomax at first then no longer felt effective. Frequency during the night. Nocturia varies, 3x/night to q1hr. -Increase Flomax 0.4 mg qd to bid. Rx sent to [facility]. 3. ED (erectile dysfunction) (N52.9: Male erectile dysfunction, unspecified) Tried Tadalafil 20 mg prn but stopped taking because he wasn't getting the result that he wanted. Able to achieve an erection but unable to maintain it. 4. Feeling of incomplete bladder emptying (R39.14: Feeling of incomplete bladder emptying) PVR today 82 ml. Occasionally voids then can void shortly later. 5. History of prostatitis (Z87.438: Personal history of other diseases of male genital organs) Diagnosed with BPH by MARIA ELENA in high school, has not had MARIA ELENA since. Treated for prostatitis at this time. Lost 20 lbs. Currently having urgency with urination and BMs. Explained likelihood of chronic prostatitis, which would cause PSA elevation and also worsen ED. -Start Doxycycline 100 mg bid x 30 days. SEs discussed. Rx sent to [facility]. 6. RLQ abdominal pain (R10.31: Right lower quadrant pain) Hx of hernia at 22 yo. 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 Normal [facility] Comment on above: Result Comment: Elec tronically Signed By: Hans NOGUERA MD\.br\Date and Time Signed: 11/15/22 11:25 EDT\.br\Electronically Co-Signed By: Janeth Price\.br\Date and Time Co-Signed: 11/15/22 11:21 EDT Ambulatory Visit Summaryon 0 09-23-2022 Ambulatory Visit Summary MAURO SILVERIO :1950 Visit Date:09/23/2022 Ambulatory Visit Instructions Your Diagnosis BMI 34.0-34.9,adult Your Care Team Attending Physician - ROSA TERRAZAS CNP Primary Care Physician - Ash MAGANA DO This Is Your Medications List lisinopril (lisinopril 40 mg Tab) pravastatin (pravastatin 10 mg Tab) sildenafil (sildenafil 50 mg Tab) tamsulosin (tamsulosin 0.4 mg Cap) Procedures Performed Acute tear of lateral meniscus of left knee (10/20/2020), Colonoscopy abnormal (04/05/2019), Achilles tendon repair, Appendectomy, Hernia. Discharge Vitals Temperature (Temporal Artery) 36.7 ?C Heart Rate (Peripheral) 77 Blood Pressure 118/74 Height 172 cm Height 68 in Weight 101.5 kg Weight 223.3 lb BMI 34.31 What to do next Scheduled Follow-Up Appointments Tuesday 10:00 AM EDT With: Hans NOGUERA MD Where: [facility] Normal [address] [place] [address]-\.br\ Medications\.br\ What How Much When Instructions\.br\ Unchanged lisinopril (lisinopril 40 mg Tab) 1 Tablets By Mouth Every day\.br\ Unchanged pravastatin (pravastatin 10 mg Tab) 1 Tablets By Mouth Every day\.br\ Unchanged sildenafil (sildenafil 50 mg Tab) 1 Tablets By Mouth Every day as needed for for erectile dysfunction\.br\ Unchanged tamsulosin (tamsulosin 0.4 mg Cap) 1 Capsules By Mouth Every day\.br\ Allergies\.br\ No Known Medication Allergies\.br\ Problems\.br\ Ongoing - Any problem that you are currently receiving treatment for.\.br\ ED (erectile dysfunction)\.br\ Hearing loss\.br\ High blood pressure\.br\ History of smoking 30 or more pack years\.br\ Hyperlipidemia\.br\ Injury of left foot\.br\ Not vaccinated against influenza\.br\ Obesity due to excess calories\.br\ Right groin pain\.br\ Symptoms involving urinary system\.br\ Historical - Any problem that you are no longer receiving treatment for.\.br\ Body mass index 34.0-34.9, adult\.br\ Dysuria\.br\ Former smoker\.br\ \.br\ [facility] Medicine Office/Clini c Noteon 09-23-2022 Family Medicine Office/Clinic Note Chief Complaint discuss referra HPI Staff Mauro is a 72 year old male who presents to discuss referral. He states that he did have blood work done recently. Completed 09.07.2022. PSA 7.9 elevated. He states he did have referral placed to see Urologist. Patient states that he would be seen 11.15.2022. He states he did have a CT on 09.16.2022. History of Present Illness I have reviewed and verified the staff HPI to be accurate for this encounter. Patient presents today with continued urinary symptoms including weak urinary stream, straining, nocturia, urinary frequency/urgency. Patient was started on tamsulosin during previous visit and states this did initially improve symptoms however does not feel as effective any more as symptoms have returned to baseline. He denies any dysuria or hematuria. Does state that he had a history of enlarged prostate while he was in high school and did receive antibiotics for this. Did have an elevation of his PSA of 7.9 during last labs completed 09/07/2022. He does continue with issues with erectile dysfunction, was trialed on Sildenafil however this was not effective for symptoms therefore he did double his dosage again did receive no benefits. Review of Systems PHQ Score Initial Depression Screen Score: 0 ROS - Provider Constitutional: fever no, chills no, sweats no, weakness no Skin: rash no, lesions no, petechiae no Respiratory: chest discomfort no, shortness of breath no, cough no, orthopnea no, wheezing no Cardiovascular: chest pain no, palpitations no, edema no Gastrointestinal: nausea no, vomiting no, diarrhea no, GI bleeding no Genitourinary: dysuria no, hematuria no, discharge no, urinary frequency yes, urinary urgency yes, + nocturia, + weak urinary stream Musculoskeletal: back pain no, trauma no Neurologic: headache no, dizziness no, numbness/tingling no, weakness no Physical Exam Vitals & Measurements T: 36.7 ?C(Temporal Artery) HR: 77(Peripheral) BP: 118/74 SpO2: 96% HT: 68 in HT: 172 cm WT: 101.5 kg WT: 223.3 lb BMI: 34.31 General: Well developed, well nourished, in no acute distress Neck: Neck supple. No masses or palpable cervical nodes. Trachea midline. Lungs: Normal respiratory effort and clear to auscultation Cardio: Regular rate and rhythm, normal S1 and S2, no murmur, no rub Abdomen: Soft, non-distended, non-tender Skin: No rashes, ulcerations, or suspicious lesions to visible skin Mental Status: Alert and oriented x3. Normal mood and affect Assessment/Plan 1. ED (erectile dysfunction) (N52.9: Male erectile dysfunction, unspecified) Will trial on tadalafil 20mg PRN ED. follow-up with urology as scheduled 2. Prostate hypertrophy (N40.0: Benign prostatic hyperplasia without lower urinary tract symptoms) CT scan results reviewed with patient as well as laboratory work. Do feel he would much benefit from urology consult as symptoms no longer responsive to tamsulosin. Continue to monitor and notify provider of any changes prior to following up with urology. 3. BMI 34.0-34.9,adult (Z68.34: Body mass index [BMI] 34.0-34.9, adult) Education attached on health risks of obesity and discusses healthy, balanced diet low in sugar, fat, carbs and exercise regimen Ordered: Body Mass Index (BMI) documented [id number] Orders: tadalafil, 20 mg = 1 tab(s), Oral, Daily, PRN erectile dysfunction, # 10 tab(s), Refills(s) 0, Pharmacy: [facility] [id number], 172, cm, 09/23/22 11:20:00 EDT, Height/Length Dosing, 101.5, kg, 09/23/22 11:20:00 EDT, Weight Dosing Follow-up With When Contact Information ROSA TERRAZAS CNP [address] [place] [address] Additional Instructions: Patient Education Budget-Friendly Healthy Eating Exercising to Lose Weight BMI for Adults Erectile Dysfunction Benign Prostatic Hyperplasia Problem List/Past Medical History Ongoing ED (erectile dysfunction) Hearing loss High blood pressure History of smoking 30 or more pack years Hyperlipidemia Injury of left foot Not vaccinated against influenza Obesity due to excess calories Prostate hypertrophy Right groin pain Symptoms involving urinary system Historical Body mass index 34.0-34.9, adult Dysuria Former smoker Procedure/Surgical History Acute tear of lateral meniscus of left knee (10/20/2020), Colonoscopy abnormal (04/05/2019), Achilles tendon repair, Appendectomy, Hernia. Medications lisinopril 40 mg Tab, 40 mg= 1 tab(s), Oral, Daily, 1 refills pravastatin 10 mg Tab, 10 mg= 1 tab(s), Oral, Daily, 1 refills tadalafil 20 mg Tab, 20 mg= 1 tab(s), Oral, Daily, PRN tamsulosin 0.4 mg Cap, 0.4 mg= 1 cap(s), Oral, Daily Allergies No Known Medication Allergies Social History Alcohol - Low Risk, 02/12/2019 Beer, Liquor, 1-2 times per year, Previous treatment: None. Alcohol use interferes with work or home: No. Drinks more than intended: No. Others hurt by drinking: No. Ready to change: No. Household alcohol concerns: No., 02/25/2020 Ex (more content not included)... Normal [facility] Comment on above: Result Comment: Elec tronically Signed By: NINI ADDISON, ROSA Streeter\.br\Date and Time Signed: 09/23/22 13:03 EDT Patient Educationon 09-24-19 23 Patient Education Nutrition Budget-Friendly Healthy Eating There are many ways to save money at the grocery store and continue to eat healthy. You can be successful if you: ? Plan meals according to your budget. ? Make a grocery list and only purchase food according to your grocery list. ? Prepare food yourself at home. What are tips for following this plan? Reading food labels ? Compare food labels between brand name foods and the store brand. Often the nutritional value is the same, but the store brand is lower cost. ? Look for products that do not have added sugar, fat, or salt (sodium). These often cost the same but are healthier for you. Products may be labeled as: ? Sugar-free. ? Nonfat. ? Low-fat. ? Sodium-free. ? Low-sodium. ? Look for lean ground beef labeled as at least 92% lean and 8% fat. Shopping ? Buy only the items on your grocery list and go only to the areas of the store that have the items on your list. ? Use coupons only for foods and brands you normally buy. Avoid buying items you wouldn't normally buy simply because they are on sale. ? Check online and in newspapers for weekly deals. ? Buy healthy items from the bulk bins when available, such as herbs, spices, flour, pasta, nuts, and dried fruit. ? Buy fruits and vegetables that are in season. Prices are usually lower on in-season produce. ? Look at the unit marcano on the marcano tag. Use it to compare different brands and sizes to find out which item is the best deal. ? Choose healthy items that are often low-cost, such as carrots, potatoes, apples, bananas, and oranges. Dried or canned beans are a low-cost protein source. ? Buy in bulk and freeze extra food. Items you can buy in bulk include meats, fish, poultry, frozen fruits, and frozen vegetables. ? Avoid buying vaznp-vb-yfu foods, such as pre-cut fruits and vegetables and pre-made salads. ? If possible, shop around to discover where you can find the best prices. Consider other retailers such as [employer] stores, larger wholesale stores, local fruit and vegetable [employer], and [employer] markets. ? Do not shop when you are hungry. If you shop while hungry, it may be hard to stick to your list and budget. ? Resist impulse buying. Use your grocery list as your official plan for the week. ? Buy a variety of vegetables and fruits by purchasing fresh, frozen, and canned items. ? Look at the top and bottom shelves for deals. Foods at eye level (eye level of an adult or child) are usually more expensive. ? Be efficient with your time when shopping. The more time you spend at the store, the more money you are likely to spend. ? To save money when choosing more expensive foods like meats and dairy: ? Choose cheaper cuts of meat, such as bone-in chicken thighs and drumsticks instead of skinless and boneless chicken. When you are ready to prepare the chicken, you can remove the skin yourself to make it healthier. ? Choose lean meats like chicken or turkey instead of beef. ? Choose canned seafood, such as tuna, salmon, or sardines. ? Buy eggs as a low-cost source of protein. ? Buy dried beans and peas, such as lentils, split peas, or kidney beans instead of meats. Dried beans and peas are a good alternative source of protein. ? Buy the larger tubs of yogurt instead of individual-sized containers. ? Choose water instead of sodas and other sweetened beverages. ? Avoid buying chips, cookies, and other junk food. These items are usually expensive and not healthy. Cooking ? Make extra food and freeze the extras in meal-sized containers or in individual portions for fast meals and snacks. ? Pre-cook on days when you have extra time to prepare meals in advance. You can keep these meals in the fridge or freezer and reheat for a quick meal. ? When you come home from the grocery store, wash, peel, and cut fruits and vegetables so they are ready to use and eat. This will help reduce food waste. Meal planning ? Do not eat out or get fast food. Prepare food at home. ? Make a grocery list and make sure to bring it with you to the store. If you have a smart phone, you could use your phone to create your shopping list. ? Plan meals and snacks according to a grocery list and budget you create. ? Use leftovers in your meal plan for the week. ? Look for recipes where you can cook once and make enough food for two meals. ? Prepare budget-friendly types of meals like stews, casseroles, and stir-torres dishes. ? Try some meatless meals or try no cook meals like salads. ? Make sure that half your plate is filled with fruits or vegetables. Choose from fresh, frozen, or canned fruits and vegetables. If eating canned, remember to rinse them before eating. This will remove any excess salt added for packaging. Summary ? Eating healthy on a budget is possible if you plan your meals according to your budget, purchase according to your budget and grocery list, and prepare food yourself. ? Tips for buyi (more content not included)... [facility] Coding Summary.on 09-20-2022 Coding Summary. [id number] [file] [id number] (more content not included)... Normal [facility] Physician Referralon 023 Physician Referral [id number]:127 Normal [facility] CT Abdomen/Pelvis w/ Contras ton 09-16-2022 CT Abdomen/Pelvis w/ Contrast Exam Date/Time: 09/16/2022 13:02 EDT Reason for Exam: Abdominal pain, acute, nonlocalized;Other (please specify) Report IMPRESSION: No acute intra-abdominal changes. There is hypertrophy of the prostate gland. EXAMINATION: CT Abdomen/Pelvis w/ Contrast HISTORY: Abdominal pain, acute, nonlocalized COMPARISON: None TECHNIQUE: Contiguous axial CT sections of the abdomen and pelvis were obtained after oral and IV contrast given. of 100 mL of Iopamidol, Isovue-300. Sagittal and coronal reformats have been obtained. All CT scans at this facility use dose modulation, iterative reconstruction, and/or weight based dosing when appropriate to reduce radiation dose to as low as reasonably achievable. FINDINGS Lung bases:Visualized lung bases show no significant pathology Liver: The liver is normal in size and enhancement. There are no focal solid or cystic lesions. There is no intra or extrahepatic bile duct dilatation. Gallbladder: No calcified gallstones. Normal gallbladder wall. No pericholecystic fluid. Spleen: There are no focal lesions or calcifications in the spleen. There is no splenomegaly. There is a 9 mm benign incidental calcification in the upper pole of the spleen Pancreas: The pancreas is normal in size and attenuation without focal lesions or dilatation of the pancreatic duct. Adrenal glands are negative. Kidneys: There are no solid renal lesions. There are prompt bilateral nephrograms after IV contrast administration with prompt excretion into nondilated collecting systems. There is no hydroureter. Bowel: There are no distended loops of bowel. There is no CT evidence of appendicitis. Nodes: No lymphadenopathy. Aorta: There is no abdominal aortic aneurysm. Report Peritoneum: No free fluid or free air. Pelvis: There are no solid or cystic lesions. The urinary bladder is within normal limits. There is mild mass effect on the floor of the urinary bladder by the enlarged prostate. The prostate gland measures 4.7 x 3.9 x 5.0 cm for an estimated ellipsoid volume of 47.99 mL Abdominal wall: The abdominal wall is intact. Bones :There are no acute osseous changes. Soft tissues: The soft tissues are unremarkable. Ordering Provider: ROSA TERRAZAS FINAL REPORT Dictated: 09/16/2022 2:40 pm Nader Srinivasan MD, V. Signed (Electronic Signature): 09/16/2022 2:40 pm Signed by: Nader Srinivasan MD, V. Transcribed by: DAVID Technologist: EDUARDO Technical Comments GFR (mL/min/1/73m2) >60 Contrast: Isovue 300 Contrast amount in ml's: 100 Oral contrast amount in ml's: 900 Normal [facility] Consent for Treatmenton 08-29 Consent for Treatment [id number]:127 Normal [facility] Consent for Treatmenton 08-28 Consent for Treatment [id number]:127 Normal [facility] Coding Summary.on 09-13-2022 Coding Summary. [id number] [file] [id number] (more content not included)... Normal [facility] Pre-Certification Formon Pre-Certification Form [id number]:127 Normal [facility] Medicine Office/Clini c Noteon 09-12-2022 Family Medicine Office/Clinic Note Chief Complaint hernia HPI Staff Mauro is a 72 year old male who presents for hernia. Patient states that he is having pain to RT groin area. He states does go down into his testicle. He states this has been going on for 3 weeks. This comes and goes. At times this does get worse for him when he coughs. He states that many years ago he did have a hernia. Patient has noticed swelling to his LT foot on Tuesday. He states is able to walk but does hurt. He has been applying ice pack. He states can not bend his foot. Has been elevating. History of Present Illness Mauro Silverio presents today for concerns of a pain to the right groin area that does radiate into the testicular region that has been present for approximately 3 weeks. The patient states the pain is worse when he coughs. It does get tender. He notices that if he eats gassy foods, it affects it. He usually has regular bowel movements. He notes if he does not have a bowel movement first thing in the morning, he does not go until the middle of the afternoon. He feels like there is pressure in the lower groin. Patient states he was out trimming on 09/04/2022 and got his left foot caught and he took a fall. He landed on his back, but denies hitting his head. He has some edema and bruising that is blue and black. He states he thought he tore his Achilles again. Mr. Shi has been walking a lot. On 09/05/2022 he could not put any weight on his left foot. He had an ice pack on it all day. Yesterday, 09/06/2022 after he was up a little bit, he could not bend it well, but he can drag it. His left foot does not hurt to put pressure on it. The pain is tolerable. The patient is taking ibuprofen as needed. I have reviewed and verified the staff HPI to be accurate for this encounter. Review of Systems PHQ Score Initial Depression Screen Score: 0 Constitutional: No fever, no chills, no sweats, no weakness Skin: No rash, no lesions, no petechiae Eye: No eye pain, no discharge, no light sensitivity, no eye irritation, no double vision blurring, no vision loss ENMT: No ear pain, no ear drainage, no sore throat, no nasal congestion, no nasal drainage, no hoarseness Respiratory: No chest discomfort, no shortness of breath, no cough, no orthopnea, no wheezing Cardiovascular: No chest pain no, no palpitations, no edema Gastrointestinal: No nausea, no vomiting, no diarrhea, no GI bleeding Genitourinary: No dysuria, no hematuria, no discharge, no urinary frequency, no urinary urgency. Positive for nocturia. Positive for erectile dysfunction. Musculoskeletal: No back pain, no trauma. Positive for right groin pain. Positive for left foot injury with edema, ecchymosis, and pain. Neurologic: No headache, no dizziness, no numbness/tingling, no weakness Physical Exam Vitals & Measurements T: 36.7 ?C(Temporal Artery) HR: 87(Peripheral) BP: 132/84 SpO2: 98% HT: 68 in HT: 172 cm WT: 101.2 kg WT: 222.64 lb BMI: 34.21 General: Well developed, well nourished, in no acute distress Mouth: Mucous membranes moist. Normal oropharynx, and posterior pharynx without lesions or exudates. Tongue normal Neck: Neck supple. No masses or palpable cervical nodes. Trachea midline. Lungs: Normal respiratory effort and clear to auscultation Cardio: Regular rate and rhythm, normal S1 and S2, no murmur, no rub Abdomen: Soft, non-distended, non-tender Musculoskeletal: There is no obvious deformity noted of left foot. There is 2+ edema noted to the pedal region including digits that does extend to the ankle and lower west region. There is also ecchymosis noted to all the digits of left foot that extends to the left bilateral heel regions on left foot. There is no significant pain/tenderness with palpation of the left foot or left malleolus region. No pain noted with flexion or extension of the left foot. No pain noted with inversion or eversion of the left foot. No pain noted over the Achilles region on the left side. Extremity: No clubbing, cyanosis, edema, or deformity, with normal ROM in both upper and lower bilateral extremities Neurologic: Grossly normal Skin: No rashes, ulcerations, or suspicious lesions to visible skin Mental Status: Alert and oriented x3. Normal mood and affect Assessment/Plan 1. ED (erectile dysfunction) (N52.9: Male erectile dysfunction, unspecified) No results with use of sildenafil. Patient did up his own dose to 100 mg and still received no benefits from the medication. We will wait for results of laboratory testing. 2. Injury of left foot (S99.922A: Unspecified injury of left foot, initial encounter) Suggested use of Zhang bandage for compressive dressing to help with edema, also use of NSAIDs and ice along with rest to the area. If no improvement over the next 1 to 2 weeks, please follow back up in office or sooner if symptoms are worsening. 3. Right groin pain (R10.31: Right lower quadrant pain) We will get ct of area given previous history of hernia with repair. 4. BMI 34 (more content not included)... Normal [facility] Comment on above: Result Comment: Elec tronically Signed By: ROSA TERRAZAS CNP\.br\Date and Time Signed: 09/12/22 19:04 EDT\.br\Electronically Co-Signed By: Jono Clemons\.br\Date and Time Co-Signed: 09/07/22 16:06 EDT Patient Educationon 09-13-19 Patient Education Gastroenterology Abdominal Pain, Adult Pain in the abdomen (abdominal pain) can be caused by many things. Often, abdominal pain is not serious and it gets better with no treatment or by being treated at home. However, sometimes abdominal pain is serious. Your health care provider will ask questions about your medical history and do a physical exam to try to determine the cause of your abdominal pain. Follow these instructions at home: Medicines ? Take dwbj-giu-noqllsj and prescription medicines only as told by your health care provider. ? Do not take a laxative unless told by your health care provider. General instructions ? Watch your condition for any changes. ? Drink enough fluid to keep your urine pale yellow. ? Keep all follow-up visits as told by your health care provider. This is important. Contact a health care provider if: ? Your abdominal pain changes or gets worse. ? You are not hungry or you lose weight without trying. ? You are constipated or have diarrhea for more than 2?3 days. ? You have pain when you urinate or have a bowel movement. ? Your abdominal pain wakes you up at night. ? Your pain gets worse with meals, after eating, or with certain foods. ? You are vomiting and cannot keep anything down. ? You have a fever. ? You have blood in your urine. Get help right away if: ? Your pain does not go away as soon as your health care provider told you to expect. ? You cannot stop vomiting. ? Your pain is only in areas of the abdomen, such as the right side or the left lower portion of the abdomen. Pain on the right side could be caused by appendicitis. ? You have bloody or black stools, or stools that look like tar. ? You have severe pain, cramping, or bloating in your abdomen. ? You have signs of dehydration, such as: ? Dark urine, very little urine, or no urine. ? Cracked lips. ? Dry mouth. ? Sunken eyes. ? Sleepiness. ? Weakness. ? You have trouble breathing or chest pain. Summary ? Often, abdominal pain is not serious and it gets better with no treatment or by being treated at home. However, sometimes abdominal pain is serious. ? Watch your condition for any changes. ? Take pmuy-roc-pqgnolf and prescription medicines only as told by your health care provider. ? Contact a health care provider if your abdominal pain changes or gets worse. ? Get help right away if you have severe pain, cramping, or bloating in your abdomen. This information is not intended to replace advice given to you by your health care provider. Make sure you discuss any questions you have with your health care provider. Document Released: 02/23/2006 Document Revised: 09/24/2019 Document Reviewed: 09/24/2019 [employer] Patient Education ? 2020 [employer] Nutrition Budget-Friendly Healthy Eating There are many ways to save money at the grocery store and continue to eat healthy. You can be successful if you: ? Plan meals according to your budget. ? Make a grocery list and only purchase food according to your grocery list. ? Prepare food yourself. What are tips for following this plan? Reading food labels ? Compare food labels between brand name foods and the store brand. Often the nutritional value is the same, but the store brand is lower cost. ? Look for products that do not have added sugar, fat, or salt (sodium). These often cost the same but are healthier for you. Products may be labeled as: ? Sugar-free. ? Nonfat. ? Low-fat. ? Sodium-free. ? Low-sodium. ? Look for lean ground beef labeled as at least 92% lean and 8% fat. Shopping ? Buy only the items on your grocery list and go only to the areas of the store that have the items on your list. ? Use coupons only for foods and brands you normally buy. Avoid buying items you wouldn't normally buy simply because they are on sale. ? Check online and in newspapers for weekly deals. ? Buy healthy items from the bulk bins when available, such as herbs, spices, flour, pasta, nuts, and dried fruit. ? Buy fruits and vegetables that are in season. Prices are usually lower on in-season produce. ? Look at the unit marcano on the marcano tag. Use it to compare different brands and sizes to find out which item is the best deal. ? Choose healthy items that are often low-cost, such as carrots, potatoes, apples, bananas, and oranges. Dried or canned beans are a low-cost protein source. ? Buy in bulk and freeze extra food. Items you can buy in bulk include meats, fish, poultry, frozen fruits, and frozen vegetables. ? Avoid buying ghuwe-dx-xyj foods, such as pre-cut fruits and vegetables and pre-made salads. ? If possible, shop around to discover where you can find the best prices. Consider other retailers such as dollar stores, larger wholesale stores, local fruit and vegetable stands, and farmers markets. ? Do not shop when you are hungry. If you shop while hungry, it may be hunter (more content not included)... Normal [facility] Ambulatory Visit Summaryon 0 09-07-2022 Ambulatory Visit Summary MAURO SILVERIO :1950 Visit Date:09/07/2022 Ambulatory Visit Instructions Your Diagnosis ED (erectile dysfunction) Injury of left foot BMI 34.0-34.9,adult Your Care Team Attending Physician - ROSA TERRAZAS CNP Primary Care Physician - Ash MAGANA DO This Is Your Medications List lisinopril (lisinopril 40 mg Tab) pravastatin (pravastatin 10 mg Tab) sildenafil (sildenafil 50 mg Tab) tamsulosin (tamsulosin 0.4 mg Cap) Procedures Performed Acute tear of lateral meniscus of left knee (10/20/2020), Colonoscopy abnormal (04/05/2019), Achilles tendon repair, Appendectomy, Hernia. Discharge Vitals Temperature (Temporal Artery) 36.7 ?C Heart Rate (Peripheral) 87 Blood Pressure 132/84 Height 68 in Height 172 cm Weight 222.64 lb Weight 101.2 kg BMI 34.21 What to do next Scheduled Follow-Up Appointments 2022 8:00 AM EDT Where: [facility] [place] [facility] CHEMISTRYOrdered By: SYSTEM SYSTEM on 09-07-2022 Albumin [Mass/Vol] 3.7 g/dL Normal 3.3 - 5.0 gm/dL [facility] Remisol Albumin/Globulin [Mass ratio] 0.9 {ratio} Low 1.1 - 2.2 [facility] ALP [Catalytic activity/Vol] 72 [iU]/d Normal 21 - 98 Int._Unit/L [facility] Rem[facility] ALT No additional P-5'-P [Catalytic activity/Vol] 20 [iU]/d Normal 6 - 46 Int._Unit/L [facility] Anion gap [Moles/Vol] 10 mmol/L Normal 6 - 16 mEq/L [facility] AST [Catalytic activity/Vol] 24 [iU]/d Normal 5 - 43 Int._Unit/L [facility] Bilirubin [Mass/Vol] 0.9 mg/dL Normal 0.0 - 1 .1 mg/dL [facility] Calcium [Mass/Vol] 9.2 mg/dL Normal 8.9 - 11. 1 mg/dL [facility] Chloride [Moles/Vol] 103 mmol/L Normal 101 - 1 11 mmol/L [facility] Cholesterol [Mass/Vol] 200 mg/dL Normal 120 - 200 mg/dL [facility] Cholesterol in HDL [Mass/Vol] 41 mg/dL Invalid Interpretation Code [facility] Cholesterol in LDL [Mass/Vol] 152 mg/dL High <=129mg/dL [facility] Cholesterol in VLDL [Mass/Vol] 13 mg/dL Normal 7 - 40 mg/dL [facility] CO2 [Moles/Vol] 27 mmol/L Normal 21 - 31 mmol/L [facility] Creatinine [Mass/Vol] 1.0 mg/dL Normal 0.5 - 1.3 mg/dL [facility] GFR/1.73 sq M.predicted among blacks MDRD (S/P/Bld) [Vol rate/Area] mL/min/1.73 m2 Normal >=59mL/min/1.7 3 m2 [facility] Chem S GFR/1.73 sq M.predicted among non-blacks MDRD (S/P/Bld) [Vol rate/Area] mL/min/1.73 m2 Normal >=59mL/min/1.7 3 m2 [facility] Chem S Globulin (S) [Mass/Vol] 4.0 g/dL Normal 1.4 - 4.0 gm/dL [facility] Glucose [Mass/Vol] 95 mg/dL Normal 55 - 199 mg/dL [facility] Potassium [Moles/Vol] 4.8 mmol/L Normal 3.5 - 5.3 mmol/L [facility] Prostate specific Ag [Mass/Vol] 7.9 ng/mL High 0.1 - 3.5 ng/mL [facility] Protein [Mass/Vol] 7.7 g/dL Normal 6.0 - 7.8 gm/dL [facility] Sodium [Moles/Vol] 135 mmol/L Normal 135 - 145 mmol/L [facility] Triglyceride [Mass/Vol] 67 mg/dL Normal <=149mg/dL [facility] Urea nitrogen/Creatinine [Mass ratio] 16 mg/mg Normal 10 - 20 [facility] S Comment on above: Result Comment: Reca lculated after rerun CHEMISTRYOrdered By: Christa Simpson on 09-07-2022 Urea nitrogen [Mass/Vol] 16 mg/dL Normal 5 - 21 mg/d L [facility] Chem S CMPon 09-07-2022 Urea nitrogen/Creatinine [Ma ss ratio] 16 No Units Normal 10-20 [facility] Comment on above: Result Comment: Reca lculated after rerun Result verified by [employer]. Performed result UTC (Unable to Calculate) was sent as an Alpha code due the inability to calculate a valid numeric value. Performed By: #### 1 [id number] ####[address] [id number] Urea nitrogen [Mass/Vol] 16 mg/dL Normal 5-21 [facility] Comment on above: Performed By: #### 1 [id number] ####[address] [id number] Albumin [Mass/Vol] 3.7 g/dL Normal 3.3-5.0 [facility] Comment on above: Performed By: #### 1 [id number] ####[address] [address] Albumin/Globulin (S) [Mass conc ratio] 0.9 Low 1.1-2.2 [facility] Comment on above: Performed By: #### 1 [id number], [id number], [id number], [id number] ####[place] [id number] ALP [Catalytic activity/Vol] 72 Int._Unit/L Normal 21- 98 [facility] Comment on above: Performed By: #### 1 [id number], [id number], [id number], [id number] ####[address] [address] ALT No additional P-5'-P [Catalytic activity/Vol] 20 Int._Unit/L Normal 6-46 [facility] Comment on above: Performed By: #### 1 [id number], [id number], [id number], [id number] ####[address] [address] Anion gap [Moles/Vol] 10 mmol/L Normal 6-16 [facility] Comment on above: Performed By: #### 1 [id number], [id number], [id number], [id number] ####[facility] [address] [place] [address] AST [Catalytic activity/Vol] 24 Int._Unit/L Normal 5-4 3 [facility] Comment on above: Performed By: #### 1 [id number], [id number], [id number], [id number] ####[facility] [address] [place] [address] Bilirubin [Mass/Vol] 0.9 mg/dL Normal 0.0-1.1 [facility] Comment on above: Performed By: #### 1 [id number], 9859639, 63529352, [id number] ####[facility] [address] [address] Calcium [Mass/Vol] 9.2 mg/dL Normal 8.9-11.1 [facility] Comment on above: Performed By: #### 1 [id number], 4337598, [id number], 7136212 ####[facility] [address] [place] [address] Chloride [Moles/Vol] 103 mmol/L Normal 101-111 [facility] Comment on above: Performed By: #### 1 [id number], 2260256, [id number], [id number] ####[facility] [address] [place] [address] CO2 [Moles/Vol] 27 mmol/L Normal 21-31 [facility] Comment on above: Performed By: #### 1 1335917, 4288263, 50807276, [id number] ####[facility] [address] [place] [address] Creatinine [Mass/Vol] 1.0 mg/dL Normal 0.5-1.3 [facility] Comment on above: Performed By: #### 1 4858520, 2325571, 19117499, 5816653 ####[facility] [address] [place] [address] Globulin (S) [Mass/Vol] 4.0 g/dL Normal 1.4-4.0 [facility] Comment on above: Performed By: #### 1 8783832, 0975272, 31556666, 9472531 ####[facility] [address] [place] [address] Glucose [Mass/Vol] 95 mg/dL Normal 55-199 [facility] Comment on above: Result Comment: If t his glucose result represents a fasting glucose, interpretation should refer to the following reference range: 55-99 mg/dL Performed By: #### 1 [id number], 0077265, 18847388, 2413953 ####[facility] [address] [place] [address] Potassium [Moles/Vol] 4.8 mmol/L Normal 3.5-5.3 [facility] Comment on above: Performed By: #### 1 0587457, 9029473, 84812637, 0718761 ####[facility] [address] [place] [address] Protein [Mass/Vol] 7.7 g/dL Normal 6.0-7.8 [facility] Comment on above: Performed By: #### 1 6897412, 8365802, 93270416, 5890578 ####[facility] [address] [place] [address] Sodium [Moles/Vol] 135 mmol/L Normal 135-145 [facility] Comment on above: Performed By: #### 1 7480129, 6991260, 54073234, 4897846 ####[facility] [address] [place] [address] Consent for Treatmenton 08-28 Consent for Treatment [id number] Normal [facility] Lipid Panelon 09-07-2022 Cholesterol [Mass/Vol] 200 mg/dL Normal 120-200 [facility] Comment on above: Performed By: #### 1 4107514, 0496143, 75498037, 8480616 ####[facility] [address] [place] [address] Cholesterol in HDL [Mass/Vol] 41 mg/dL Invalid Interpretation Code [facility] Comment on above: Result Comment: HDL > or equal to 60 mg/dL: Low cardiovascular risk HDL < 40 mg/dL : High cardiovascular risk Performed By: #### 1 3223230, 5484047, 09020137, 0523814 ####[facility] [address] [place] [address] Cholesterol in LDL [Mass/Vol] 152 mg/dL High <=129 [facility] Comment on above: Performed By: #### 1 0401080, 8084320, 51863417, 5993522 ####[facility] [address] [place] [address] Cholesterol in VLDL [Mass/Vol] 13 mg/dL Normal 7-40 [facility] Comment on above: Performed By: #### 1 8383548, 0315784, 29177357, 3587924 ####[facility] [address] [place] [address] Triglyceride [Mass/Vol] 67 mg/dL Normal <=149 [facility] Comment on above: Performed By: #### 1 7173685, 8447374, 42350804, 5966314 ####[facility] [address] [place] [address] PSA Screen, Totalon 09-08-19 23 Prostate specific Ag [Mass/Vol] 7.9 ng/mL High 0.1- 3.5 [facility] Comment on above: Result Comment: The concentration of PSA determined by different manufacturers can vary due to differences in assay methods and reagent specificity. Values obtained from different assay methods cannot be used interchangeably. The methodology used for this result was chemiluminescence using [employer]'s Access [employer] PSA reagent. Performed By: #### 1 [id number], 0373982, [id number], [id number] ####[facility] [address] [place] [address] eGFRon 09-07-2022 GFR/1.73 sq M.predicted krupa g blacks MDRD (S/P/Bld) [Vol rate/Area] mL/min/{1.73_m2} Normal >=59 [facility] Comment on above: Order Comment: Order added by Discern Expert. Result Comment: eGFR is race adjusted. AA=. Performed By: #### 1 [id number], 1374780, 89900360, 5409063 ####[facility] [address] [place] [address] GFR/1.73 sq M.predicted krupa g non-blacks MDRD (S/P/Bld) [Vol rate/Area] mL/min/{1.73_m2} Normal >=59 [facility] Comment on above: Order Comment: Order added by Discern Expert. Result Comment: Roll Capper neo kidney disease could be indicated at eGFR's of less than 60 mL/min/1.73m2. Kidney failure is indicated at less than 15 mL/min/1.73m2. Performed By: #### 1 0395745, 9110217, 70517752, 5252315 ####[facility] [address] [place] [address] Family Medicine Office/Clini c Noteon 07-21-2022 Family Medicine Office/Clinic Note Chief Complaint poss UTI HPI Staff Mauro is a 72 year old male who presents for poss UTI. He states father is diabetic. He states pt always thirsty. Has been drinking a lot of water. Onset- last month has gotten worse Frequency- yes Urgency- yes Small volume void- yes Dysuria- -none Pressure- no Back pain- no Nocturia- yes Fever/chills- no Nausea/vomiting- no Hesitancy- yes Weak Stream- yes Incomplete Emptying- yes UTI or other reason for antbx's last 30 days- he states pt had cold like symptoms and was taking Mucinex no other medications or OTC. History of Present Illness I have reviewed and verified the staff HPI to be accurate for this encounter. Patient presents for urological concerns as noted above. Patient states approximately 1 month ago was having urgency and nocturia, felt as if he was unable to empty his bladder. 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 Patient states he is waking up approximately 2-3 times per night to go to the bathroom, and has also noticed a weak stream and feelings of incomplete voiding with symptoms. He denies any hematuria, dysuria, abdominal/flank pain, or any nausea/vomiting/diarrhea with symptoms. Patient also states has been having issues with erectile dysfunction, states he is able to achieve an erection however unable to maintain for any period of time. Lost his approximately 2 years ago to a prolonged illness and until recently has had no sexual activity. Review of Systems PHQ Score Initial Depression Screen Score: 0 ROS - Provider Constitutional: fever no, chills no, sweats no, weakness no Skin: rash no, lesions no, petechiae no Eye: eye pain no, discharge no, light sensitivity no, eye irritation no, double vision no, blurring no, vision loss no ENMT: ear pain no, ear drainage no, sore throat no, nasal congestion no , nasal drainage no hoarseness no Respiratory: chest discomfort no, shortness of breath no, cough no, orthopnea no, wheezing no Cardiovascular: chest pain no, palpitations no, edema no Gastrointestinal: nausea no, vomiting no, diarrhea no, GI bleeding no Genitourinary: dysuria no, hematuria no, discharge no, urinary frequency yes, urinary urgency yes Musculoskeletal: back pain no, trauma no Neurologic: headache no, dizziness no, numbness/tingling no, weakness no Physical Exam Vitals & Measurements T: 36.7 ?C(Temporal Artery) HR: 88(Peripheral) BP: 160/100 SpO2: 97% HT: 68 in HT: 172 cm WT: 103.4 kg WT: 227.48 lb BMI: 34.95 General: Well developed, well nourished, in no acute distress Neck: Neck supple. No masses or palpable cervical nodes. Trachea midline. No carotid bruits auscultated Lungs: Normal respiratory effort and clear to auscultation Cardio: Regular rate and rhythm, normal S1 and S2, no murmur, no rub Abdomen: Soft, non-distended, non-tender to palpation, No rebound or guarding, tenderness, No masses palpated, Normal bowel sounds. Charlton's sign negative, Rovsing's sign negative Musculoskeletal: No CVAT to percusion Neurologic: Grossly normal Skin: No rashes, ulcerations, or suspicious lesions to visible skin Mental Status: Alert and oriented x3. Normal mood and affect Assessment/Plan 1. Symptoms involving urinary system (R39.9: Unspecified symptoms and signs involving the genitourinary system) Relatively negative UA in office today, will send for culture for confirmation. Do feel is most likely related to prostate condition will trial on tamsulosin 0.4 mg as discussed. Continue to monitor symptoms for any worsening or improvement to notify provider with any worsening or new symptoms present. 2. ED (erectile dysfunction) (N52.9: Male erectile dysfunction, unspecified) Start sildenafil as discussed. 3. BMI 34.0-34.9,adult (Z68.34: Body mass index [BMI] 34.0-34.9, adult) Education attached on health risks of obesity and discusses healthy, balanced diet low in sugar, fat, carbs and exercise regimen Urinary frequency (R35.0: Frequency of micturition) See treatment plan above Follow-up With When Contact Information ROSA TERRAZAS CNP [address] [place] [address] Additional Instructions: Patient Education Benign Prostatic Hyperplasia Exercising to Lose Weight Budget-Friendly Healthy Eating BMI for Adults Erectile Dysfunction Problem List/Past Medical History Ongoing ED (erectile dysfunction) Hearing loss High blood pressure History of smoking 30 or more pack years Hyperlipidemia Not vaccinated against influenza Obesity due to excess calories Symptoms involving urinary system Historical Body mass index 34.0-34.9, adult Dysuria Former smoker Procedure/Surgical History Acute tear of lateral meniscus of left knee (10/20/2020), Colonoscopy abnormal (04/05/2019), Achilles tendon repair, Appendectomy, Hernia. Medications lisinopril 40 mg Tab, 40 mg= 1 tab(s), Oral, Daily, 1 refills pravastatin 10 mg Tab, 10 mg= 1 ta (more content not included)... Normal [facility] Comment on above: Result Comment: Elec tronically Signed By: ROSA TERRAZAS CNP\.br\Date and Time Signed: 07/21/22 21:38 EST Patient Educationon 07-21-19 Patient Education Nutrition Budget-Friendly Healthy Eating There are many ways to save money at the grocery store and continue to eat healthy. You can be successful if you: ? Plan meals according to your budget. ? Make a grocery list and only purchase food according to your grocery list. ? Prepare food yourself. What are tips for following this plan? Reading food labels ? Compare food labels between brand name foods and the store brand. Often the nutritional value is the same, but the store brand is lower cost. ? Look for products that do not have added sugar, fat, or salt (sodium). These often cost the same but are healthier for you. Products may be labeled as: ? Sugar-free. ? Nonfat. ? Low-fat. ? Sodium-free. ? Low-sodium. ? Look for lean ground beef labeled as at least 92% lean and 8% fat. Shopping ? Buy only the items on your grocery list and go only to the areas of the store that have the items on your list. ? Use coupons only for foods and brands you normally buy. Avoid buying items you wouldn't normally buy simply because they are on sale. ? Check online and in newspapers for weekly deals. ? Buy healthy items from the bulk bins when available, such as herbs, spices, flour, pasta, nuts, and dried fruit. ? Buy fruits and vegetables that are in season. Prices are usually lower on in-season produce. ? Look at the unit marcano on the marcano tag. Use it to compare different brands and sizes to find out which item is the best deal. ? Choose healthy items that are often low-cost, such as carrots, potatoes, apples, bananas, and oranges. Dried or canned beans are a low-cost protein source. ? Buy in bulk and freeze extra food. Items you can buy in bulk include meats, fish, poultry, frozen fruits, and frozen vegetables. ? Avoid buying mjise-eo-fnn foods, such as pre-cut fruits and vegetables and pre-made salads. ? If possible, shop around to discover where you can find the best prices. Consider other retailers such as dollar stores, larger wholesale stores, local fruit and vegetable stands, and farmers markets. ? Do not shop when you are hungry. If you shop while hungry, it may be hard to stick to your list and budget. ? Resist impulse buying. Use your grocery list as your official plan for the week. ? Buy a variety of vegetables and fruits by purchasing fresh, frozen, and canned items. ? Look at the top and bottom shelves for deals. Foods at eye level (eye level of an adult or child) are usually more expensive. ? Be efficient with your time when shopping. The more time you spend at the store, the more money you are likely to spend. ? To save money when choosing more expensive foods like meats and dairy: ? Choose cheaper cuts of meat, such as bone-in chicken thighs and drumsticks instead of skinless and boneless chicken. When you are ready to prepare the chicken, you can remove the skin yourself to make it healthier. ? Choose lean meats like chicken or turkey instead of beef. ? Choose canned seafood, such as tuna, salmon, or sardines. ? Buy eggs as a low-cost source of protein. ? Buy dried beans and peas, such as lentils, split peas, or kidney beans instead of meats. Dried beans and peas are a good alternative source of protein. ? Buy the larger tubs of yogurt instead of individual-sized containers. ? Choose water instead of sodas and other sweetened beverages. ? Avoid buying chips, cookies, and other junk food. These items are usually expensive and not healthy. Cooking ? Make extra food and freeze the extras in meal-sized containers or in individual portions for fast meals and snacks. ? Pre-cook on days when you have extra time to prepare meals in advance. You can keep these meals in the fridge or freezer and reheat for a quick meal. ? When you come home from the grocery store, wash, peel, and cut fruits and vegetables so they are ready to use and eat. This will help reduce food waste. Meal planning ? Do not eat out or get fast food. Prepare food at home. ? Make a grocery list and make sure to bring it with you to the store. If you have a smart phone, you could use your phone to create your shopping list. ? Plan meals and snacks according to a grocery list and budget you create. ? Use leftovers in your meal plan for the week. ? Look for recipes where you can cook once and make enough food for two meals. ? Include budget-friendly meals like stews, casseroles, and stir-torres dishes. ? Try some meatless meals or try no cook meals like salads. ? Make sure that half your plate is filled with fruits or vegetables. Choose from fresh, frozen, or canned fruits and vegetables. If eating canned, remember to rinse them before eating. This will remove any excess salt added for packaging. Summary ? Eating healthy on a budget is possible if you plan your meals according to your budget, purchase according to your budget and grocery list, and prepare food yourself. ? Tips for buying more food on a (more content not included)... Normal [facility] Coding Summary.on 07-08-2022 Coding Summary. [id number] [file] [id number] (more content not included)... Normal [facility] C Urineon 07-07-2022 Bacteria identified Cx Nom (U) Microbiology PROCEDURE: Urine Culture [R1] SOURCE: U Random BODY SITE: COLLECTED DATE/TIME: 07/05/2022 11:54 EST RECEIVED DATE/TIME: 07/05/2022 16:12 EST START DATE/TIME: 07/05/2022 16:12 EST FREE TEXT SOURCE: NINI ADDISON, ROSA TERRAZAS CNP, ROSA Streeter FINAL REPORTS Final Report [] Verified Date/Time: 07/07/2022 13:23 EST No growth at 2 days. Performing Locations R1: This test was performed at: [facility], [address] [place] [address], [facility] , , [facility] Comment on above: Performed By: #### 2 [id number] ####[place] [address] Ambulatory Visit Summaryon 0 07-05-2022 Ambulatory Visit Summary MAURO SILVERIO :1950 Visit Date:07/05/2022 Ambulatory Visit Instructions Your Diagnosis BMI 34.0-34.9,adult Urinary frequency Tests Performed Urnls Dip Stick Non-Auto w/o Micrscpy POC [id number] Your Care Team Attending Physician - ROSA TERRAZAS CNP Primary Care Physician - Ash MAGANA DO This Is Your Medications List lisinopril (lisinopril 40 mg Tab) nystatin-triamcinolone topical (nystatin-triamcinolone Top Crm 60 gram) pravastatin (pravastatin 10 mg Tab) Procedures Performed Acute tear of lateral meniscus of left knee (10/20/2020), Colonoscopy abnormal (04/05/2019), Achilles tendon repair, Appendectomy, Hernia. Discharge Vitals Temperature (Temporal Artery) 36.7 ?C Heart Rate (Peripheral) 88 Blood Pressure 160/100 Height 68 in Height 172 cm Weight 227.48 lb Weight 103.4 kg BMI 34.95 What to do next Scheduled Follow-Up Appointments 2022 8:00 AM EDT Where: [facility] Family Medicine [facility] Patient Letter FTon 2022 Patient Letter [facility] (Inserted Image. Kaide ble to display) June 14, 2022 MAURO SILVERIO [address] [place] [address] MAURO SILVERIO 1950 Dear Mauro, This is a SECOND ATTEMPT to remind you that you are due for an appointment with [facility]. Please contact our office at [phone] to schedule an appointment at your earliest convenience. Thank you, [facility] Vital Signs Date Time Vital Sign Value Performing Clinician Facility 02-14-2023 10:29-0400 Blood Pressure Location Hans NOGUERA [facility] 02-14-2023 10:29-0400 Diastolic blood pressure 74 mm[Hg] Hans NOGUERA [facility] 02-14-2023 10:29-0400 Heart rate 80 /min Hans NOGUERA [facility] 02-14-2023 10:29-0400 Respiratory rate 16 /min Hans NOGUERA [facility] 02-14-2023 10:29-0400 Systolic blood pressure 132 mm[Hg] Hans NOGUERA [facility] 11-15-2022 10:01-0400 Blood Pressure Location Hans NOGUERA [facility] 11-15-2022 10:01-0400 Diastolic blood pressure 88 mm[Hg] Hans NOGUERA [facility] 11-15-2022 10:01-0400 Heart rate 85 /min Hans NOGUERA [facility] 11-15-2022 10:01-0400 Respiratory rate 16 /min Hanschapo NOGUERA [facility] 11-15-2022 10:01-0400 Systolic blood pressure 135 mm[Hg] Hans NOGUERA [facility] 09-07-2022 13:58-0400 Diastolic blood pressure 84 mm[Hg] ROSA SIDELL [facility] 09-07-2022 13:58-0400 Mean blood pressure 100 mm[Hg] ROSA SIDELL [facility] 09-07-2022 13:58-0400 Systolic blood pressure 132 mm[Hg] ROSA SIDELL [facility] 09-07-2022 13:36-0400 Blood Pressure Location ROSA SIDELL [facility] 09-07-2022 13:36-0400 Body temperature 98.06 [degF] ROSA SIDELL [facility] 09-07-2022 13:36-0400 Diastolic blood pressure 84 mm[Hg] ROSA SIDELL [facility] 09-07-2022 13:36-0400 Heart rate 87 /min ROSA SIDELL [facility] 09-07-2022 13:36-0400 SaO2% (BldA) [Mass fraction] 98 % ROSA SIDELL [facility] 09-07-2022 13:36-0400 Systolic blood pressure 150 mm[Hg] ROSA SIDELL [facility] 07-05-2022 11:39-0500 Diastolic blood pressure 100 mm[Hg] ROSA SIDELL [facility] 07-05-2022 11:39-0500 Mean blood pressure 120 mm[Hg] ROSA SIDELL [facility] 07-05-2022 11:39-0500 Systolic blood pressure 160 mm[Hg] ROSA SIDELL [facility] 07-05-2022 11:29-0500 Blood Pressure Location ROSA SIDELL [facility] 07-05-2022 11:29-0500 Body temperature 98.06 [degF] ROSA SIDELL [facility] 07-05-2022 11:29-0500 Diastolic blood pressure 92 mm[Hg] ROSA SIDELL [facility] 07-05-2022 11:29-0500 Heart rate 88 /min ROSA SIDELL [facility] 07-05-2022 11:29-0500 SaO2% (BldA) [Mass fraction] 97 % ROSA TERRAZAS [facility] 07-05-2022 11:29-0500 Systolic blood pressure 146 mm[Hg] ROSA TERRAZAS [facility] 02-24-2022 09:49-0400 Diastolic blood pressure 100 mm[Hg] Ash MAGANA [facility] 02-24-2022 09:49-0400 Mean blood pressure 120 mm[Hg] Ash MAGANA [facility] 02-24-2022 09:49-0400 Systolic blood pressure 160 mm[Hg] Ash MAGANA [facility] 02-24-2022 08:05-0400 Blood Pressure Location Ash MAGANA [facility] 02-24-2022 08:05-0400 Diastolic blood pressure 110 mm[Hg] Ash MAGANA [facility] 02-24-2022 08:05-0400 Heart rate 76 /min Ash MAGANA [facility] 02-24-2022 08:05-0400 Respiratory rate 16 /min Ash MAGANA [facility] 02-24-2022 08:05-0400 SaO2% (BldA) [Mass fraction] 98 % Ash MAGANA [facility] 02-24-2022 08:05-0400 Systolic blood pressure 170 mm[Hg] Ash MAGANA [facility] Encounters Encounter Date Encounter Type Care Provider Facility Start: 05-09-2023 End: 05-10-2023 ambulatory Hans NOGUERA Facility:[facility] Start: 05-09-2023 End: 05-09-2023 Patient encounter procedure Hans NOGUERA [facility] Start: 05-05-2023 End: 05-06-2023 ambulatory Hans NOGUERA Facility:[id number] Start: 04-15-2023 ambulatory Hanschapo NOGUERA Facili ty:[facility] Start: 04-11-2023 ambulatory Hans R NOGUERA Facili ty:[id number] Start: 03-08-2023 End: 03-09-2023 ambulatory Hans NOGUERA Facility:[facility] Start: 02-17-2023 ambulatory Hans NOGUERA Facility :[facility] Start: 02-14-2023 End: 02-15-2023 ambulatory Hans NOGUERA Facility:[facility] Start: 02-14-2023 End: 02-14-2023 Patient encounter procedure Hans Duarte NOGUERA [facility] Start: 11-15-2022 End: 11-16-2022 ambulatory KIMBERLYN FINNEY Facility:[facility] Start: 11-15-2022 End: 11-15-2022 Patient encounter procedure Hans NOGUERA [facility] Start: 09-23-2022 End: 09-24-2022 ambulatory ROSA W SIDELL Facility:[facility] Start: 09-17-2022 ambulatory Hanschapo NOGUERA Facility :[facility] Start: 09-16-2022 End: 09-17-2022 ambulatory ROSA W SIDELL Facility:[facility] Start: 09-16-2022 End: 09-16-2022 Patient encounter procedure ROSA W SIDELL [facility] Start: 09-14-2022 End: 09-15-2022 ambulatory ROSA W SIDELL Facility:[facility] Start: 09-07-2022 End: 09-08-2022 ambulatory ROSA W SIDELL Facility:[facility] Start: 09-07-2022 End: 09-08-2022 ambulatory KIMBERLYN FINNEY Facility:[facility] Start: 09-07-2022 End: 09-07-2022 Patient encounter procedure ROSA Streeter SIDESEAN [facility] Start: 09-07-2022 End: 09-07-2022 Patient encounter procedure Kimberlyn Finney [facility] Start: 07-05-2022 End: 07-06-2022 ambulatory ROSA W SIDESEAN Facility:[facility] Start: 07-05-2022 End: 07-05-2022 Lab Drop off ROSA TERRAZAS [facility] Start: 07-05-2022 End: 07-05-2022 Patient encounter procedure ROSA TERRAZAS [facility] Start: 06-29-2022 ambulatory KIMBERLYN FINNEY Facility :[facility] Start: 02-24-2022 End: 02-24-2022 Patient encounter procedure Ash MAGANA [facility] Start: 02-24-2022 End: 02-24-2022 Well adult monitoring check done Ash MAGANA [facility] Procedures Date Procedure Procedure Detail Performing Clinician Start: 02-23-2022 Vaccine refused by patient Ahs MAGANA Start: 10-20-2020 Acute tear of latera l meniscus of left knee (disorder) Ash MAGANA Start: 04-05-2019 Colonoscopy abnormal (finding) Ash MAGANA Comment on above: 3 yr follow up Appendectomy Ash MAGANA Herniated structure (morphologic abnormal ity) Ash MAGANA Repair of tendo achilles Cindy spannvirgilio CHINO Comment on above: right 2009 left 2016 Vaccine refused by patient Not v accinated against influenza( Confirmed ) Ash MAGANA Plan of Treatment Date Care Activity Detail Author Start: 06-03-2023 ambulatory Ambulatory Facility:[facility] [place] Immunizations Immunization Date Immunization Notes Care Provider Fa cility 08-28-2020 SARS-CoV-2 (COVID-19 ) mRNA-1273 vaccine Ash MAGANA [facility] 07-31-2020 SARS-CoV-2 (COVID-19 ) mRNA-1273 vaccine Ash MAGANA [facility] 02-25-2020 pneumococcal polysaccharide vaccine, 23 valent Ash MAGANA [facility] 2019 pneumococcal conjuga te vaccine, 13 valent Ash MAGANA [facility] NEGATED: Highlighted row has not occurred!02-24-2022 zoster vaccine, live Ash MAGANA [facility] NEGATED: Highlighted row has not occurred!02-24-2022 influenza virus vaccine, unspecified formulation Ash MAGANA [facility] NEGATED: Highlighted row has not occurred!02-24-2022 SARS-CoV-2 mRNA (tozinameran 5y-11y) vaccine Ash MAGANA [facility] NEGATED: Highlighted row has not occurred!02-27-2021 influenza virus vaccine, unspecified formulation Ash MAGANA [facility] NEGATED: Highlighted row has not occurred!02-25-2020 influenza virus vaccine, unspecified formulation Ash MAGANA [facility] NEGATED: Highlighted row has not occurred!10-11-2019 influenza virus vaccine, unspecified formulation Ash MAGANA [facility] Payers Date Payer Category Payer Unknown [id number] 1950 Unknown [id number] 2.16.8 [id number] 1950 Unknown [id number] 2.16.8 [id number] 1950 Unknown [id number] 2.16.8 [id number] 1952 Unknown [id number] 2.16.8 [id number] 1952 Unknown [id number] 2.16.8 [id number] 1952 Unknown [id number] 2.16.8 40.1.704654.3.579.2.727 1952 Unknown [id number] 2.16.8 40.1.114026.3.579.2.727 1952 Unknown [id number] 2.16.8 40.1.639971.3.579.2.727 1952 Unknown [id number] 2.16.8 40.1.390454.3.579.2.727 1952 Unknown [id number] 2.16.8 40.1.633194.3.579.2.727 1952 Unknown [id number] 2.16.8 40.1.041518.3.579.2.727 1952 Unknown [id number] 2.16.8 40.1.202694.3.579.2.727 1952 Unknown [id number] 2.16.8 40.1.942534.3.579.2.727 1952 Unknown [id number] 2.16.8 40.1.645000.3.579.2.727 1952 Unknown [id number] 2.16.8 40.1.268533.3.579.2.727 1950 Unknown [id number] 2.16.8 [id number] Social History Date Type Detail Facility Start: 02-27-2021 End: 02-14-2023 Tobacco smoking status Ex-smoker (finding) [facility] Comment on above: 30 yr history, quit 02/2015 Tobacco smoking status Never [facility] Comment on above: 30 yr history, quit 02/2015 Sex Assigned At Male [facility] Functional Status Date Assessment Result Facility 02-14-2023 Functional Status N/A [facility] 11-15-2022 Functional Status N/A [facility] 09-07-2022 Functional Status N/A [facility] 07-05-2022 Functional Status N/A [facility] 02-24-2022 Functional Status N/A [facility] Clinical Notes 02-24-2022 to 03-08-2023 Radiology Note Date & Type Note Facility 03-08-2023 Note [id number] [facility] 03-08-2023 Note Custom Cystoscopy ? Voiding after the procedure: there may be some pain, burning, urgency, frequency and blood tinged urine following the procedure. These symptoms usually resolve within 2-5 days. Drink the amount of fluid it takes to keep the urine pink to yellow or clear in color. Drinking enough water and fluids will help to ease any discomfort after your procedure. ? If you are having problems that seem out of the ordinary, please call. ? If unable to contact your physician and you feel it is an emergency, go to the nearest emergency room or call 911 ? Diet ? you may resume your normal diet. ? Activity ? you may resume your normal activities ? Call if you have a fever over 100 degrees. [facility] 02-14-2023 Hospital Discharge instructions Patient Education 02/14/2023 11:30:40 Benign Prostatic Hyperplasia Benign Prostatic Hyperplasia Benign prostatic hyperplasia (BPH) is an enlarged prostate gland that is caused by the normal aging process. The prostate may get bigger as a man gets older. The condition is not caused by cancer. The prostate is a walnut-sized gland that is involved in the production of semen. It is located in front of the rectum and below the bladder. The bladder stores urine. The urethra carries stored urine out of the body. An enlarged prostate can press on the urethra. This can make it harder to pass urine. The buildup of urine in the bladder can cause infection. Back pressure and infection may progress to bladder damage and kidney (renal) failure. What are the causes? This condition is part of the normal aging process. However, not all men develop problems from this condition. If the prostate enlarges away from the urethra, urine flow will not be blocked. If it enlarges toward the urethra and compresses it, there will be problems passing urine. What increases the risk? This condition is more likely to develop in men older than 50 years. What are the signs or symptoms? Symptoms of this condition include: Getting up often during the night to urinate. Needing to urinate frequently during the day. Difficulty starting urine flow. Decrease in size and strength of your urine stream. Leaking (dribbling) after urinating. Inability to pass urine. This needs immediate treatment. Inability to completely empty your bladder. Pain when you pass urine. This is more common if there is also an infection. Urinary tract infection (UTI). How is this diagnosed? This condition is diagnosed based on your medical history, a physical exam, and your symptoms. Tests will also be done, such as: A post-void bladder scan. This measures any amount of urine that may remain in your bladder after you finish urinating. A digital rectal exam. In a rectal exam, your health care provider checks your prostate by putting a lubricated, gloved finger into your rectum to feel the back of your prostate gland. This exam detects the size of your gland and any abnormal lumps or growths. An exam of your urine (urinalysis). A prostate specific antigen (PSA) screening. This is a blood test used to screen for prostate cancer. An ultrasound. This test uses sound waves to electronically produce a picture of your prostate gland. Your health care provider may refer you to a specialist in kidney and prostate diseases (urologist). How is this treated? Once symptoms begin, your health care provider will monitor your condition (active surveillance or watchful waiting). Treatment for this condition will depend on the severity of your condition. Treatment may include: Observation and yearly exams. This may be the only treatment needed if your condition and symptoms are mild. Medicines to relieve your symptoms, including: ?Medicines to shrink the prostate. ?Medicines to relax the muscle of the prostate. Surgery in severe cases. Surgery may include: ?Prostatectomy. In this procedure, the prostate tissue is removed completely through an open incision or with a laparoscope or robotics. ?Transurethral resection of the prostate (TURP). In this procedure, a tool is inserted through the opening at the tip of the penis (urethra). It is used to cut away tissue of the inner core of the prostate. The pieces are removed through the same opening of the penis. This removes the blockage. ?Transurethral incision (TUIP). In this procedure, small cuts are made in the prostate. This lessens the prostate's pressure on the urethra. ?Transurethral microwave thermotherapy (TUMT). This procedure uses microwaves to create heat. The heat destroys and removes a small amount of prostate tissue. ?Transurethral needle ablation (TUNA). This procedure uses radio frequencies to destroy and remove a small amount of prostate tissue. ?Interstitial laser coagulation (ILC). This procedure uses a laser to destroy and remove a small amount of prostate tissue. ?Transurethral electrovaporization (TUVP). This procedure uses electrodes to destroy and remove a small amount of prostate tissue. ?Prostatic urethral lift. This procedure inserts an implant to push the lobes of the prostate away from the urethra. Follow these instructions at home: Take qwrv-fad-iwexlku and prescription medicines only as told by your health care provider. Monitor your symptoms for any changes. Contact your health care provider with any changes. Avoid drinking large amounts of liquid before going to bed or out in public. Avoid or reduce how much caffeine or alcohol you drink. Give yourself time when you urinate. Keep all follow-up visits. This is important. Contact a health care provider if: You have unexplained back pain. Your symptoms do not get better with treatment. You develop side effects from the medicine you are taking. Your urine becomes very dark or has a bad smell. Your lower abdomen becomes distended and you have trouble passing urine. Get help right away if: You have a fever or chills. You suddenly cannot urinate. You feel light-headed or very dizzy, or you faint. There are large amounts of blood or clots in your urine. Your urinary problems become hard to manage. You develop moderate to severe low back or flank pain. The flank is the side of your body between the ribs and the hip. These symptoms may be an emergency. Get help right away. Call 911. Do not wait to see if the symptoms will go away. Do not drive yourself to the hospital. Summary Benign prostatic hyperplasia (BPH) is an enlarged prostate that is caused by the normal aging process. It is not caused by cancer. An enlarged prostate can press on the urethra. This can make it hard to pass urine. This condition is more likely to develop in men older than 50 years. Get help right away if you suddenly cannot urinate. This information is not intended to replace advice given to you by your health care provider. Make sure you discuss any questions you have with your health care provider. Document Revised: 12/02/2021 Document Reviewed: 12/02/2021 [employer] Patient Education 2022 [employer]. Follow Up Care 11/15/2022 11:27:14 With:CHUCKIE WATKINS, Hans Duarte, URL Address: [facility] [address] [place] [address] [phone] When: Unknown Comments:Sched cysto and Uros [facility] 11-15-2022 Hospital Discharge instructions Patient Education 11/15/2022 11:16:09 Prostatitis Prostatitis Prostatitis is swelling or inflammation of the prostate gland, also called the prostate. This gland is about 1.5 inches wide and 1 inch high, and it is involved in making semen. The prostate is located below a man's bladder, in front of the rectum. There are four types of prostatitis: Chronic prostatitis (CP), also called chronic pelvic pain syndrome (CPPS). This is the most common type of prostatitis. It is associated with increased muscle tone in the area between the hip bones (pelvic area), around the prostate. This type is also known as a pelvic floor disorder. Chronic bacterial prostatitis. This type usually results from an acute bacterial infection in the prostate gland that keeps coming back or has not been treated properly. The symptoms are less severe than those caused by acute bacterial prostatitis, which lasts a shorter time. Asymptomatic inflammatory prostatitis. This type does not have symptoms and does not need treatment. This is diagnosed when tests are done for other disorders of the urinary tract or reproductive tract. Acute bacterial prostatitis. This type starts quickly and results from an acute bacterial infection in the prostate gland. It is usually associated with a bladder infection, high fever, and chills. This is the least common type of prostatitis. What are the causes? Bacterial prostatitis is caused by an infection from bacteria. Chronic nonbacterial prostatitis may be caused by: Factors related to the nervous system. This system includes thebrain, spinal cord, and nerves. An autoimmune response. This happens when the body's disease-fighting system attacks healthy tissue in the body by mistake. Psychological factors. These have to do with how the mind works. The causes of the other types of prostatitis are usually not known. What are the signs or symptoms? Symptoms of this condition depend on the type of prostatitis you have. Acute bacterial prostatitis Symptoms may include: Pain or burning during urination. Frequent and sudden urges to urinate. Trouble starting to urinate. Fever. Chills. Pain in your muscles or joints, lower back, or lower abdomen. Other types of prostatitis Symptoms may include: Sudden urges to urinate, or urinating often. Trouble starting to urinate. Weak urine stream. Dribbling after urination. Discharge coming from the penis. Pain in the testicles, the penis, or the tip of the penis. Pain in the area in front of the rectum and below the scrotum (perineum). Pain when ejaculating. How is this diagnosed? This condition may be diagnosed based on: A physical and medical exam. A digital rectal exam. For this, the health care provider may use a finger to feel the prostate. A urine test to check for bacteria. A semen sample or blood tests. Ultrasound. Urodynamic tests to check how your body handles urine. Cystoscopy to look inside your bladder or inside the part of your body that drains urine from the bladder (urethra). How is this treated? Treatment for this condition depends on the type of prostatitis. Treatment may involve: Medicines to relieve pain or inflammation, or to help relax your muscles. Physical therapy. Heat therapy. Biofeedback. These techniques help you control certain body functions. Relaxation exercises. Antibiotic medicine, if your condition is caused by bacteria. Sitz baths. These warm water baths help to relax your pelvic floor muscles, which helps to relieve pressure on the prostate. Follow these instructions at home: Medicines Take dhlg-thz-thqoteg and prescription medicines only as told by your health care provider. If you were prescribed an antibiotic medicine, take it as told by your health care provider. Do not stop using the antibiotic even if you start to feel better. Managing pain and swelling Take sitz baths as directed by your health care provider. For a sitz bath, sit in warm water that is deep enough to cover your hips and buttocks. If directed, apply heat to the affected area as often as told by your health care provider. Use the heat source that your health care provider recommends, such as a moist heat pack or a heating pad. ?Place a towel between your skin and the heat source. ?Leave the heat on for 20 30 minutes. ?Remove the heat if your skin turns bright red. This is especially important if you are unable to feel pain, heat, or cold. You may have a greater risk of getting burned. General instructions Do exercises as told by your health care provider, if you were prescribed physical therapy, biofeedback, or relaxation exercises. Keep all follow-up visits as told by your health care provider. This is important. Where to find more information National [place] of Diabetes and Digestive and Kidney Diseases: https://www.niddk.nih.gov Contact a health care provider if: Your symptoms get worse. You have a fever. Get help right away if: You have chills. You feel light-headed or feel like you may faint. You cannot urinate. You have blood or blood clots in your urine. Summary Prostatitis is swelling or inflammation of the prostate gland. Treatment for this condition depends on the type of prostatitis. Take fnot-hrr-oxpkhmv and prescription medicines only as told by your health care provider. Get help right away of you have chills, feel light-headed, feel like you may faint, cannot urinate, or have blood or blood clots in your urine. This information is not intended to replace advice given to you by your health care provider. Make sure you discuss any questions you have with your health care provider. Document Revised: 06/20/2020 Document Reviewed: 06/20/2020 [employer] Patient Education 2022 [employer]. Follow Up Care 09/17/2022 14:16:02 With:CHUCKIE WATKINS, Hans Duarte, URL Address: [facility] [address], [place] [address]- When: Unknown [facility] 02-24-2022 Hospital Discharge instructions Patient Education 02/24/2022 09:44:49 Preventive Care 65 Years and Older, Male Preventive Care 65 Years and Older, Male Preventive care refers to lifestyle choices and visits with your health care provider that can promote health and wellness. This includes: A yearly physical exam. This is also called an annual well check. Regular dental and eye exams. Immunizations. Screening for certain conditions. Healthy lifestyle choices, such as diet and exercise. What can I expect for my preventive care visit? Physical exam Your health care provider will check: Height and weight. These may be used to calculate body mass index (BMI), which is a measurement that tells if you are at a healthy weight. Heart rate and blood pressure. Your skin for abnormal spots. Counseling Your health care provider may ask you questions about: Alcohol, tobacco, and drug use. Emotional well-being. Home and relationship well-being. Sexual activity. Eating habits. History of falls. Memory and ability to understand (cognition). Work and work environment. What immunizations do I need? Influenza (flu) vaccine This is recommended every year. Tetanus, diphtheria, and pertussis (Tdap) vaccine You may need a Td booster every 10 years. Varicella (chickenpox) vaccine You may need this vaccine if you have not already been vaccinated. Zoster (shingles) vaccine You may need this after age 60. Pneumococcal conjugate (PCV13) vaccine One dose is recommended after age 65. Pneumococcal polysaccharide (PPSV23) vaccine One dose is recommended after age 65. Measles, mumps, and rubella (MMR) vaccine You may need at least one dose of MMR if you were born in 1957 or later. You may also need a second dose. Meningococcal conjugate (MenACWY) vaccine You may need this if you have certain conditions. Hepatitis A vaccine You may need this if you have certain conditions or if you travel or work in places where you may be exposed to hepatitis A. Hepatitis B vaccine You may need this if you have certain conditions or if you travel or work in places where you may be exposed to hepatitis B. Haemophilus influenzae type b (Hib) vaccine You may need this if you have certain conditions. You may receive vaccines as individual doses or as more than one vaccine together in one shot (combination vaccines). Talk with your health care provider about the risks and benefits of combination vaccines. What tests do I need? Blood tests Lipid and cholesterol levels. These may be checked every 5 years, or more frequently depending on your overall health. Hepatitis C test. Hepatitis B test. Screening Lung cancer screening. You may have this screening every year starting at age 55 if you have a 14-zxli-ljke history of smoking and currently smoke or have quit within the past 15 years. Colorectal cancer screening. All adults should have this screening starting at age 50 and continuing until age 75. Your health care provider may recommend screening at age 45 if you are at increased risk. You will have tests every 1 10 years, depending on your results and the type of screening test. Prostate cancer screening. Recommendations will vary depending on your family history and other risks. Diabetes screening. This is done by checking your blood sugar (glucose) after you have not eaten for a while (fasting). You may have this done every 1 3 years. Abdominal aortic aneurysm (AAA) screening. You may need this if you are a current or former smoker. Sexually transmitted disease (STD) testing. Follow these instructions at home: Eating and drinking Eat a diet that includes fresh fruits and vegetables, whole grains, lean protein, and low-fat dairy products. Limit your intake of foods with high amounts of sugar, saturated fats, and salt. Take vitamin and mineral supplements as recommended by your health care provider. Do not drink alcohol if your health care provider tells you not to drink. If you drink alcohol: ?Limit how much you have to 0 2 drinks a day. ?Be aware of how much alcohol is in your drink. In the [place] one drink equals one 12 oz bottle of beer (355 mL), one 5 oz glass of wine (148 mL), or one 1 oz glass of hard liquor (44 mL). Lifestyle Take daily care of your teeth and gums. Stay active. Exercise for at least 30 minutes on 5 or more days each week. Do not use any products that contain nicotine or tobacco, such as cigarettes, e-cigarettes, and chewing tobacco. If you need help quitting, ask your health care provider. If you are sexually active, practice safe sex. Use a condom or other form of protection to prevent STIs (sexually transmitted infections). Talk with your health care provider about taking a low-dose aspirin or statin. What's next? Visit your health care provider once a year for a well check visit. Ask your health care provider how often you should have your eyes and teeth checked. Stay up to date on all vaccines. This information is not intended to replace advice given to you by your health care provider. Make sure you discuss any questions you have with your health care provider. Document Released: 06/11/2016 Document Revised: 05/10/2019 Document Reviewed: 05/10/2019 [employer] Patient Education 2020 [employer]. 02/24/2022 09:44:46 Obesity, Adult, Glax-bd-Zrnq Obesity, Adult Obesity is having too much body fat. Being obese means that your weight is more than what is healthy for you. BMI is a number that explains how much body fat you have. If you have a BMI of 30 or more, you are obese. Obesity is often caused by eating or drinking more calories than your body uses. Changing your lifestyle can help you lose weight. Obesity can cause serious health problems, such as: Stroke. Coronary artery disease (CAD). Type 2 diabetes. Some types of cancer, including cancers of the colon, breast, uterus, and gallbladder. Osteoarthritis. High blood pressure (hypertension). High cholesterol. Sleep apnea. Gallbladder stones. Infertility problems. What are the causes? Eating meals each day that are high in calories, sugar, and fat. Being born with genes that may make you more likely to become obese. Having a medical condition that causes obesity. Taking certain medicines. Sitting a lot (having a sedentary lifestyle). Not getting enough sleep. Drinking a lot of drinks that have sugar in them. What increases the risk? Having a family history of obesity. Being an woman. Being a man. Living in an area with limited access to: ?[place], recreation centers, or sidewalks. ?Healthy food choices, such as grocery stores and [email or web address]. What are the signs or symptoms? The main sign is having too much body fat. How is this treated? Treatment for this condition often includes changing your lifestyle. Treatment may include: ?Changing your diet. This may include making a healthy meal plan. ?Exercise. This may include activity that causes your heart to beat faster (aerobic exercise) and strength training. Work with your doctor to design a program that works for you. ?Medicine to help you lose weight. This may be used if you are not able to lose 1 pound a week after 6 weeks of healthy eating and more exercise. ?Treating conditions that cause the obesity. ?Surgery. Options may include gastric banding and gastric bypass. This may be done if: ?Other treatments have not helped to improve your condition. ?You have a BMI of 40 or higher. ?You have life-threatening health problems related to obesity. Follow these instructions at home: Eating and drinking Follow advice from your doctor about what to eat and drink. Your doctor may tell you to: ?Limit fast food, sweets, and processed snack foods. ?Choose low-fat options. For example, choose low-fat milk instead of whole milk. ?Eat 5 or more servings of fruits or vegetables each day. ?Eat at home more often. This gives you more control over what you eat. ?Choose healthy foods when you eat out. ?Learn to read food labels. This will help you learn how much food is in 1 serving. ?Keep low-fat snacks available. ?Avoid drinks that have a lot of sugar in them. These include soda, fruit juice, iced tea with sugar, and flavored milk. Drink enough water to keep your pee (urine) pale yellow. Do not go on fad diets. Physical activity Exercise often, as told by your doctor. Most adults should get up to 150 minutes of moderate-intensity exercise every week.Ask your doctor: ?What types of exercise are safe for you. ?How often you should exercise. Warm up and stretch before being active. Do slow stretching after being active (cool down). Rest between times of being active. Lifestyle Work with your doctor and a food expert (dietitian) to set a weight-loss goal that is best for you. Limit your screen time. Find ways to reward yourself that do not involve food. Do not drink alcohol if: ?Your doctor tells you not to drink. ?You are , may be , or are planning to become . If you drink alcohol: ?Limit how much you use to: ?0 1 drink a day for women. ?0 2 drinks a day for men. ?Be aware of how much alcohol is in your drink. In the [place] one drink equals one 12 oz bottle of beer (355 mL), one 5 oz glass of wine (148 mL), or one 1 oz glass of hard liquor (44 mL). General instructions Keep a weight-loss journal. This can help you keep track of: ?The food that you eat. ?How much exercise you get. Take owkb-ymr-[id number] and prescription medicines only as told by your doctor. Take vitamins and supplements only as told by your doctor. Think about joining a support group. Keep all follow-up visits as told by your doctor. This is important. Contact a doctor if: You cannot meet your weight loss goal after you have changed your diet and lifestyle for 6 weeks. Get help right away if you: Are having trouble breathing. Are having thoughts of harming yourself. Summary Obesity is having too much body fat. Being obese means that your weight is more than what is healthy for you. Work with your doctor to set a weight-loss goal. Get regular exercise as told by your doctor. This information is not intended to replace advice given to you by your health care provider. Make sure you discuss any questions you have with your health care provider. Document Released: 08/07/2012 Document Revised: 01/18/2019 Document Reviewed: 01/18/2019 [employer] Patient Education 2020 [employer]. 02/24/2022 09:44:45 Heart Disease Prevention Heart Disease Prevention Heart disease is the leading cause of in the world. Coronary artery disease is the most common cause of heart disease. This condition results when cholesterol and other substances (plaque) build up inside the sampson of the blood vessels that supply your heart muscle (arteries). This buildup in arteries is called atherosclerosis. You can take actions to lower your risk of heart disease. How can heart disease affect me? Heart disease can cause many unpleasant symptoms and complications, such as: Chest pain (angina). Reduced or blocked blood flow to your heart. This can cause: ?Irregular heartbeats (arrhythmias). ?Heart attack. ?Heart failure. What can increase my risk? The following factors may make you more likely to develop this condition: High blood pressure (hypertension). High cholesterol. Smoking. A diet high in saturated fats or trans fats. Lack of physical activity. Obesity. Drinking too much alcohol. Diabetes. Having a family history of heart disease. What actions can I take to prevent heart disease? Nutrition Eat a heart-healthy eating plan as told by your health care provider. Examples include the DASH (Dietary Approaches to Stop Hypertension) eating plan or the Mediterranean diet. Generally, it is recommended that you: ?Eat less salt (sodium). Ask your health care provider how much sodium is safe for you. Most people should have less than 2,300 mg each day. ?Limit unhealthy fats, such as saturated and trans fats, in your diet. You can do this by eating low-fat dairy products, eating less red meat, and avoiding processed foods. ?Eat healthy fats (omega-3 fatty acids). These are found in fish, such as mackerel or salmon. ?Eat more fruits and vegetables. You should try to fill one-half of your plate with fruits and vegetables at each meal. ?Eat more whole grains. ?Avoid foods and drinks that have added sugars. Lifestyle Get regular exercise. This is one of the most important things you can do for your health. Generally, it is recommended that you: ?Exercise for at least 30 minutes on most days of the week (150 minutes each week). The exercise should increase your heart rate and make you sweat (aerobic exercise). ?Add strength exercises on at least 2 days each week. Do not use any products that contain nicotine or tobacco, such as cigarettes and e-cigarettes. These can damage your heart and blood vessels. If you need help quitting, ask your health care provider. Alcohol use Do not drink alcohol if: ?Your health care provider tells you not to drink. ?You are , may be , or are planning to become . If you drink alcohol, limit how much you have: ?0 1 drink a day for women. ?0 2 drinks a day for men. Be aware of how much alcohol is in your drink. In the [place] one drink equals one typical bottle of beer (12 oz), one-half glass of wine (5 oz), or one shot of hard liquor (1 oz). Medicines Take acwy-kpn-fsinhnf and prescription medicines only as told by your health care provider. Ask your health care provider whether you should take an aspirin every day. Taking aspirin may help reduce your risk of heart disease and stroke. Depending on your risk factors, your health care provider may prescribe medicines to lower your risk of heart disease or to control related conditions. You may take medicine to: ?Lower cholesterol. ?Control blood pressure. ?Control diabetes. General information Keep your blood pressure under control, as recommended by your health care provider. For most healthy people, the upper number of your blood pressure (systolic) should be no higher than 120, and the lower number (diastolic) no higher than 80. Treatment may be needed if your blood pressure is higher than 130/80. Have your blood pressure checked at least every two years. Your health care provider may check your blood pressure more often if you have high blood pressure. After age 20, have your cholesterol checked every 4 6 years. If you have risk factors for heart disease, you may need to have it checked more frequently. Treatment may be needed if your cholesterol is high. Have your body mass index (BMI) checked every year. Your health care provider can calculate your BMI from your height and weight. Work with your health care provider to lose weight, if needed, or to maintain a healthy weight. Where to find more information: Centers for Disease Control and Prevention: www.cdc.gov/heartdisease [place] Heart Association: www.heart.org ?Take a free online heart disease risk quiz to better understand your personal risk factors. Summary Heart disease is the leading cause of in the world. Heart disease can cause chest pain, abnormal heart rhythms, heart attack, and heart failure. High blood pressure, high cholesterol, and smoking are the main risk factors for heart disease, although other factors also contribute. You can take actions to lower your chances of developing heart disease. Work with your health care provider to reduce your risk by following a heart-healthy diet, being physically active, and controlling your weight, blood pressure, and cholesterol level. This information is not intended to replace advice given to you by your health care provider. Make sure you discuss any questions you have with your health care provider. Document Released: 12/28/2004 Document Revised: 05/31/2018 Document Reviewed: 05/31/2018 [employer] Patient Education 2020 [employer]. 02/24/2022 09:44:43 Healthy Eating Healthy Eating Following a healthy eating pattern may help you to achieve and maintain a healthy body weight, reduce the risk of chronic disease, and live a long and productive life. It is important to follow a healthy eating pattern at an appropriate calorie level for your body. Your nutritional needs should be met primarily through food by choosing a variety of nutrient-rich foods. What are tips for following this plan? Reading food labels Read labels and choose the following: ?Reduced or low sodium. ?Juices with 100% fruit juice. ?Foods with low saturated fats and high polyunsaturated and monounsaturated fats. ?Foods with whole grains, such as whole wheat, cracked wheat, brown rice, and wild rice. ?Whole grains that are fortified with folic acid. This is recommended for women who are or who want to become . Read labels and avoid the following: ?Foods with a lot of added sugars. These include foods that contain brown sugar, corn sweetener, corn syrup, dextrose, fructose, glucose, high-fructose corn syrup, honey, invert sugar, lactose, malt syrup, maltose, molasses, raw sugar, sucrose, trehalose, or turbinado sugar. ?Do not eat more than the following amounts of added sugar per day: 6 teaspoons (25 g) for women. 9 teaspoons (38 g) for men. ?Foods that contain processed or refined starches and grains. ?Refined grain products, such as white flour, degermed cornmeal, white bread, and white rice. Shopping Choose nutrient-rich snacks, such as vegetables, whole fruits, and nuts. Avoid high-calorie and high-sugar snacks, such as potato chips, fruit snacks, and candy. Use oil-based dressings and spreads on foods instead of solid fats such as butter, stick margarine, or cream cheese. Limit pre-made sauces, mixes, and instant products such as flavored rice, instant noodles, and ready-made pasta. Try more plant-protein sources, such as tofu, tempeh, black beans, edamame, lentils, nuts, and seeds. Explore eating plans such as the Mediterranean diet or vegetarian diet. Cooking Use oil to saut or stir-torres foods instead of solid fats such as butter, stick margarine, or lard. Try baking, boiling, grilling, or broiling instead of frying. Remove the fatty part of meats before cooking. Steam vegetables in water or broth. Meal planning At meals, imagine dividing your plate into fourths: ?One-half of your plate is fruits and vegetables. ?One-fourth of your plate is whole grains. ?One-fourth of your plate is protein, especially lean meats, poultry, eggs, tofu, beans, or nuts. Include low-fat dairy as part of your daily diet. Lifestyle Choose healthy options in all settings, including home, work, school, restaurants, or stores. Prepare your food safely: ?Wash your hands after handling raw meats. ?Keep food preparation surfaces clean by regularly washing with hot, soapy water. ?Keep raw meats separate from wnmle-mq-oln foods, such as fruits and vegetables. ?dog license officer supervisor, meat, poultry, and eggs to the recommended internal temperature. ?Store foods at safe temperatures. In general: ?Keep cold foods at 40 F (4.4 C) or below. ?Keep hot foods at 140 F (60 C) or above. ?Keep your freezer at 0 F (-17.8 C) or below. ?Foods are no longer safe to eat when they have been between the temperatures of 40 140 F (4.4 60 C) for more than 2 hours. What foods should I eat? Fruits Aim to eat 2 cup-equivalents of fresh, canned (in natural juice), or frozen fruits each day. Examples of 1 cup-equivalent of fruit include 1 small apple, 8 large strawberries, 1 cup canned fruit, cup dried fruit, or 1 cup 100% juice. Vegetables Aim to eat 2 3 cup-equivalents of fresh and frozen vegetables each day, including different varieties and colors. Examples of 1 cup-equivalent of vegetables include 2 medium carrots, 2 cups raw, leafy greens, 1 cup chopped vegetable (raw or cooked), or 1 medium baked potato. Grains Aim to eat 6 ounce-equivalents of whole grains each day. Examples of 1 ounce-equivalent of grains include 1 slice of bread, 1 cup qdtyj-lp-plb cereal, 3 cups popcorn, or cup cooked rice, pasta, or cereal. Meats and other proteins Aim to eat 5 6 ounce-equivalents of protein each day. Examples of 1 ounce-equivalent of protein include 1 egg, 1/2 cup nuts or seeds, or 1 tablespoon (16 g) peanut butter. A cut of meat or fish that is the size of a deck of cards is about 3 4 ounce-equivalents. Of the protein you eat each week, try to have at least 8 ounces come from seafood. This includes salmon, trout, jack, and anchovies. Dairy Aim to eat 3 cup-equivalents of fat-free or low-fat dairy each day. Examples of 1 cup-equivalent of dairy include 1 cup (240 mL) milk, 8 ounces (250 g) yogurt, 1 ounces (44 g) natural cheese, or 1 cup (240 mL) fortified soy milk. Fats and oils Aim for about 5 teaspoons (21 g) per day. Choose monounsaturated fats, such as canola and olive oils, avocados, peanut butter, and most nuts, or polyunsaturated fats, such as sunflower, corn, and soybean oils, walnuts, pine nuts, sesame seeds, sunflower seeds, and flaxseed. Beverages Aim for six 8-oz glasses of water per day. Limit coffee to three to five 8-oz cups per day. Limit caffeinated beverages that have added calories, such as soda and energy drinks. Limit alcohol intake to no more than 1 drink a day for non women and 2 drinks a day for men. One drink equals 12 oz of beer (355 mL), 5 oz of wine (148 mL), or 1 oz of hard liquor (44 mL). Seasoning and other foods Avoid adding excess amounts of salt to your foods. Try flavoring foods with herbs and spices instead of salt. Avoid adding sugar to foods. Try using oil-based dressings, sauces, and spreads instead of solid fats. This information is based on general [place] nutrition guidelines. For more information, visit choosemyplate.gov. Exact amounts may vary based on your nutrition needs. Summary A healthy eating plan may help you to maintain a healthy weight, reduce the risk of chronic diseases, and stay active throughout your life. Plan your meals. Make sure you eat the right portions of a variety of nutrient-rich foods. Try baking, boiling, grilling, or broiling instead of frying. Choose healthy options in all settings, including home, work, school, restaurants, or stores. This information is not intended to replace advice given to you by your health care provider. Make sure you discuss any questions you have with your health care provider. Document Released: 08/28/2018 Document Revised: 08/28/2018 Document Reviewed: 08/28/2018 [employer] Patient Education 2020 [employer]. 02/24/2022 09:44:42 Exercising to Lose Weight Exercising to Lose Weight Exercise is structured, repetitive physical activity to improve fitness and health. Getting regular exercise is important for everyone. It is especially important if you are overweight. Being overweight increases your risk of heart disease, stroke, diabetes, high blood pressure, and several types of cancer. Reducing your calorie intake and exercising can help you lose weight. Exercise is usually categorized as moderate or vigorous intensity. To lose weight, most people need to do a certain amount of moderate-intensity or vigorous-intensity exercise each week. Moderate-intensity exercise Moderate-intensity exercise is any activity that gets you moving enough to burn at least three times more energy (calories) than if you were sitting. Examples of moderate exercise include: Walking a mile in 15 minutes. Doing light yard work. Biking at an easy pace. Most people should get at least 150 minutes (2 hours and 30 minutes) a week of moderate-intensity exercise to maintain their body weight. Vigorous-intensity exercise Vigorous-intensity exercise is any activity that gets you moving enough to burn at least six times more calories than if you were sitting. When you exercise at this intensity, you should be working hard enough that you are not able to carry on a conversation. Examples of vigorous exercise include: Running. Playing a team sport, such as football, basketball, and soccer. Jumping rope. Most people should get at least 75 minutes (1 hour and 15 minutes) a week of vigorous-intensity exercise to maintain their body weight. How can exercise affect me? When you exercise enough to burn more calories than you eat, you lose weight. Exercise also reduces body fat and builds muscle. The more muscle you have, the more calories you burn. Exercise also: Improves mood. Reduces stress and tension. Improves your overall fitness, flexibility, and endurance. Increases bone strength. The amount of exercise you need to lose weight depends on: Your age. The type of exercise. Any health conditions you have. Your overall physical ability. Talk to your health care provider about how much exercise you need and what types of activities are safe for you. What actions can I take to lose weight? Nutrition Make changes to your diet as told by your health care provider or diet and nutrition and dietetics instructor (dietitian). This may include: ?Eating fewer calories. ?Eating more protein. ?Eating less unhealthy fats. ?Eating a diet that includes fresh fruits and vegetables, whole grains, low-fat dairy products, and lean protein. ?Avoiding foods with added fat, salt, and sugar. Drink plenty of water while you exercise to prevent dehydration or heat stroke. Activity Choose an activity that you enjoy and set realistic goals. Your health care provider can help you make an exercise plan that works for you. Exercise at a moderate or vigorous intensity most days of the week. ?The intensity of exercise may vary from person to person. You can tell how intense a workout is for you by paying attention to your breathing and heartbeat. Most people will notice their breathing and heartbeat get faster with more intense exercise. Do resistance training twice each week, such as: ?Push-ups. ?Sit-ups. ?Lifting weights. ?Using resistance bands. Getting short amounts of exercise can be just as helpful as long structured periods of exercise. If you have trouble finding time to exercise, try to include exercise in your daily routine. ?Get up, stretch, and walk around every 30 minutes throughout the day. ?Go for a walk during your lunch break. ?Park your car farther away from your destination. ?If you take public transportation, get off one stop early and walk the rest of the way. ?Make phone calls while standing up and walking around. ?Take the stairs instead of elevators or escalators. Wear comfortable clothes and shoes with good support. Do not exercise so much that you hurt yourself, feel dizzy, or get very short of breath. Where to find more information [place]. Department of Health and Human Services: www.hhs.gov Centers for Disease Control and Prevention (CDC): www.cdc.gov Contact a health care provider: Before starting a new exercise program. If you have questions or concerns about your weight. If you have a medical problem that keeps you from exercising. Get help right away if you have any of the following while exercising: Injury. Dizziness. Difficulty breathing or shortness of breath that does not go away when you stop exercising. Chest pain. Rapid heartbeat. Summary Being overweight increases your risk of heart disease, stroke, diabetes, high blood pressure, and several types of cancer. Losing weight happens when you burn more calories than you eat. Reducing the amount of calories you eat in addition to getting regular moderate or vigorous exercise each week helps you lose weight. This information is not intended to replace advice given to you by your health care provider. Make sure you discuss any questions you have with your health care provider. Document Released: 06/18/2011 Document Revised: 05/29/2018 Document Reviewed: 05/29/2018 [employer] Patient Education 2020 [employer]. 02/24/2022 09:44:33 DASH Eating Plan DASH Eating Plan DASH stands for Dietary Approaches to Stop Hypertension. The DASH eating plan is a healthy eating plan that has been shown to reduce high blood pressure (hypertension). It may also reduce your risk for type 2 diabetes, heart disease, and stroke. The DASH eating plan may also help with weight loss. What are tips for following this plan? General guidelines Avoid eating more than 2,300 mg (milligrams) of salt (sodium) a day. If you have hypertension, you may need to reduce your sodium intake to 1,500 mg a day. Limit alcohol intake to no more than 1 drink a day for non women and 2 drinks a day for men. One drink equals 12 oz of beer, 5 oz of wine, or 1 oz of hard liquor. Work with your health care provider to maintain a healthy body weight or to lose weight. Ask what an ideal weight is for you. Get at least 30 minutes of exercise that causes your heart to beat faster (aerobic exercise) most days of the week. Activities may include walking, swimming, or biking. Work with your health care provider or diet and nutrition and dietetics instructor (dietitian) to adjust your eating plan to your individual calorie needs. Reading food labels Check food labels for the amount of sodium per serving. Choose foods with less than 5 percent of the Daily Value of sodium. Generally, foods with less than 300 mg of sodium per serving fit into this eating plan. To find whole grains, look for the word whole as the first word in the ingredient list. Shopping Buy products labeled as low-sodium or no salt added. Buy fresh foods. Avoid canned foods and premade or frozen meals. Cooking Avoid adding salt when cooking. Use salt-free seasonings or herbs instead of table salt or sea salt. Check with your health care provider or pharmacist before using salt substitutes. Do not torres foods. Cook foods using healthy methods such as baking, boiling, grilling, and broiling instead. Cook with heart-healthy oils, such as olive, canola, soybean, or sunflower oil. Meal planning Eat a balanced diet that includes: ?5 or more servings of fruits and vegetables each day. At each meal, try to fill half of your plate with fruits and vegetables. ?Up to 6 8 servings of whole grains each day. ?Less than 6 oz of lean meat, poultry, or fish each day. A 3-oz serving of meat is about the same size as a deck of cards. One egg equals 1 oz. ?2 servings of low-fat dairy each day. ?A serving of nuts, seeds, or beans 5 times each week. ?Heart-healthy fats. Healthy fats called [place]-3 fatty acids are found in foods such as flaxseeds and coldwater fish, like sardines, salmon, and mackerel. Limit how much you eat of the following: ?Canned or prepackaged foods. ?Food that is high in trans fat, such as fried foods. ?Food that is high in saturated fat, such as fatty meat. ?Sweets, desserts, sugary drinks, and other foods with added sugar. ?Full-fat dairy products. Do not salt foods before eating. Try to eat at least 2 vegetarian meals each week. Eat more home-cooked food and less restaurant, buffet, and fast food. When eating at a restaurant, ask that your food be prepared with less salt or no salt, if possible. What foods are recommended? The items listed may not be a complete list. Talk with your dietitian about what dietary choices are best for you. Grains Whole-grain or whole-wheat bread. Whole-grain or whole-wheat pasta. Brown rice. Oatmeal. Quinoa. Bulgur. Whole-grain and low-sodium cereals. Gala bread. Low-fat, low-sodium crackers. Whole-wheat flour tortillas. Vegetables Fresh or frozen vegetables (raw, steamed, roasted, or grilled). Low-sodium or reduced-sodium tomato and vegetable juice. Low-sodium or reduced-sodium tomato sauce and tomato paste. Low-sodium or reduced-sodium canned vegetables. Fruits All fresh, dried, or frozen fruit. Canned fruit in natural juice (without added sugar). Meat and other protein foods Skinless chicken or turkey. Ground chicken or turkey. Pork with fat trimmed off. Fish and seafood. Egg whites. Dried beans, peas, or lentils. Unsalted nuts, nut butters, and seeds. Unsalted canned beans. Lean cuts of beef with fat trimmed off. Low-sodium, lean deli meat. Dairy Low-fat (1%) or fat-free (skim) milk. Fat-free, low-fat, or reduced-fat cheeses. Nonfat, low-sodium ricotta or cottage cheese. Low-fat or nonfat yogurt. Low-fat, low-sodium cheese. Fats and oils Soft margarine without trans fats. Vegetable oil. Low-fat, reduced-fat, or light mayonnaise and salad dressings (reduced-sodium). Canola, safflower, olive, soybean, and sunflower oils. Avocado. Seasoning and other foods Herbs. Spices. Seasoning mixes without salt. Unsalted popcorn and pretzels. Fat-free sweets. What foods are not recommended? The items listed may not be a complete list. Talk with your dietitian about what dietary choices are best for you. Grains Baked goods made with fat, such as croissants, muffins, or some breads. Dry pasta or rice meal packs. Vegetables Creamed or fried vegetables. Vegetables in a cheese sauce. Regular canned vegetables (not low-sodium or reduced-sodium). Regular canned tomato sauce and paste (not low-sodium or reduced-sodium). Regular tomato and vegetable juice (not low-sodium or reduced-sodium). Pickles. Olives. Fruits Canned fruit in a light or heavy syrup. Fried fruit. Fruit in cream or butter sauce. Meat and other protein foods Fatty cuts of meat. Ribs. Fried meat. Colmenares. Sausage. Bologna and other processed lunch meats. Salami. Fatback. Hotdogs. Bratwurst. Salted nuts and seeds. Canned beans with added salt. Canned or smoked fish. Whole eggs or egg yolks. Chicken or turkey with skin. Dairy Whole or 2% milk, cream, and [id number]. Whole or full-fat cream cheese. Whole-fat or sweetened yogurt. Full-fat cheese. Nondairy creamers. Whipped toppings. Processed cheese and cheese spreads. Fats and oils Butter. Stick margarine. Lard. Shortening. Ghee. Colmenares fat. Tropical oils, such as coconut, palm kernel, or palm oil. Seasoning and other foods Salted popcorn and pretzels. Onion salt, garlic salt, seasoned salt, table salt, and sea salt. Worcestershire sauce. Tartar sauce. Barbecue sauce. Teriyaki sauce. Soy sauce, including reduced-sodium. Steak sauce. Canned and packaged gravies. Fish sauce. Oyster sauce. Cocktail sauce. Horseradish that you find on the shelf. Ketchup. Mustard. Meat flavorings and tenderizers. Bouillon cubes. Hot sauce and Tabasco sauce. Premade or packaged marinades. Premade or packaged taco seasonings. Relishes. Regular salad dressings. Where to find more information: National Heart, Lung, and Blood [place]: www.nhlbi.nih.gov [place] Heart Association: www.heart.org Summary The DASH eating plan is a healthy eating plan that has been shown to reduce high blood pressure (hypertension). It may also reduce your risk for type 2 diabetes, heart disease, and stroke. With the DASH eating plan, you should limit salt (sodium) intake to 2,300 mg a day. If you have hypertension, you may need to reduce your sodium intake to 1,500 mg a day. When on the DASH eating plan, aim to eat more fresh fruits and vegetables, whole grains, lean proteins, low-fat dairy, and heart-healthy fats. Work with your health care provider or diet and nutrition and dietetics instructor (dietitian) to adjust your eating plan to your individual calorie needs. This information is not intended to replace advice given to you by your health care provider. Make sure you discuss any questions you have with your health care provider. Document Released: 05/04/2012 Document Revised: 04/28/2018 Document Reviewed: 05/09/2017 [employer] Patient Education 2020 [employer]. 02/24/2022 09:44:31 BMI for Adults BMI for Adults Body mass index (BMI) is a number that is calculated from a person's weight and height. BMI may help to estimate how much of a person's weight is composed of fat. BMI can help identify those who may be at higher risk for certain medical problems. How is BMI used with adults? BMI is used as a screening tool to identify possible weight problems. It is used to check whether a person is obese, overweight, healthy weight, or underweight. How is BMI calculated? BMI measures your weight and compares it to your height. This can be done either in [place] ([place] or metric measurements. Note that charts are available to help you find your BMI quickly and easily without having to do these calculations yourself. To calculate your BMI in [place] ([place] measurements, your health care provider will: 1.Measure your weight in pounds (lb). 2.Multiply the number of pounds by 703. For example, for a person who weighs 180 lb, multiply that number by 703, which equals 126,540. 3.Measure your height in inches (in). Then multiply that number by itself to get a measurement called inches squared. For example, for a person who is 70 in tall, the inches squared measurement is 70 in x 70 in, which equals 4900 inches squared. 4.Divide the total from Step 2 (number of lb x 703) by the total from Step 3 (inches squared): 126,540 4900 = 25.8. This is your BMI. To calculate your BMI in metric measurements, your health care provider will: 1.Measure your weight in kilograms (kg). 2.Measure your height in meters (m). Then multiply that number by itself to get a measurement called meters squared. For example, for a person who is 1.75 m tall, the meters squared measurement is 1.75 m x 1.75 m, which is equal to 3.1 meters squared. 3.Divide the number of kilograms (your weight) by the meters squared number. In this example: 70 3.1 = 22.6. This is your BMI. How is BMI interpreted? To interpret your results, your health care provider will use BMI charts to identify whether you are underweight, normal weight, overweight, or obese. The following guidelines will be used: Underweight: BMI less than 18.5. Normal weight: BMI between 18.5 and 24.9. Overweight: BMI between 25 and 29.9. Obese: BMI of 30 and above. Please note: Weight includes both fat and muscle, so someone with a muscular build, such as an athlete, may have a BMI that is higher than 24.9. In cases like these, BMI is not an accurate measure of body fat. To determine if excess body fat is the cause of a BMI of 25 or higher, further assessments may need to be done by a health care provider. BMI is usually interpreted in the same way for men and women. Why is BMI a useful tool? BMI is useful in two ways: Identifying a weight problem that may be related to a medical condition, or that may increase the risk for medical problems. Promoting lifestyle and diet changes in order to reach a healthy weight. Summary Body mass index (BMI) is a number that is calculated from a person's weight and height. BMI may help to estimate how much of a person's weight is composed of fat. BMI can help identify those who may be at higher risk for certain medical problems. BMI can be measured using [place] measurements or metric measurements. To interpret your results, your health care provider will use BMI charts to identify whether you are underweight, normal weight, overweight, or obese. This information is not intended to replace advice given to you by your health care provider. Make sure you discuss any questions you have with your health care provider. Document Released: 01/25/2005 Document Revised: 04/28/2018 Document Reviewed: 03/29/2018 [employer] Patient Education 2020 [employer]. [facility] Evaluation + Plan note Future Appointments Appointment Date:02/17/2023 08:00:00 AM Scheduled Provider: Location:[facility] Appointment Type:FM Medicare Wellness Subsequent [facility] Evaluation + Plan note Future Appointments Appointment Date:02/17/2023 08:00:00 AM Scheduled Provider: Location:[facility] Appointment Type:FM Medicare Wellness Subsequent Diagnostic Tests PendingUrine Culture 07/05/22 [facility] Evaluation + Plan note Future Appointments Appointment Date:02/17/2023 08:00:00 AM Scheduled Provider: Location:[facility] Appointment Type: Medicare Wellness Subsequent Future Scheduled TestsUS Abdomen, Limited 09/07/22 [facility] Evaluation + Plan note Future Appointments Appointment Date:02/14/2023 10:30:00 AM Scheduled Provider:Hans NOGUERA MD Location:[facility] Appointment Type:URO Office Visit Appointment Date:02/17/2023 08:00:00 AM Scheduled Provider: Location:[facility] Appointment Type: Medicare Wellness Subsequent Diagnostic Tests PendingPSA Free & Total 11/15/22 [facility] Evaluation + Plan note Future Appointments Appointment Date:02/17/2023 08:00:00 AM Scheduled Provider: Location:[facility] Appointment Type: Medicare Wellness Subsequent Appointment Date:03/01/2023 10:30:00 AM Scheduled Provider: Location[facility] Appointment Type:Urology CALL PAT FT Appointment Date:03/08/2023 10:00:00 AM Scheduled Provider: Location:[facility] Appointment Type:Urology FT Appointment Date:03/08/2023 11:15:00 AM Scheduled Provider: [facility] Appointment Type:Urology FT [facility] Evaluation + Plan note Future Appointments Appointment Date:06/03/2023 09:45:00 AM Scheduled Provider:Hans NOGUERA MD Location:[facility] Appointment Type:URO Office Visit [facility] Hospital course Narrative No data available for this section [facility] Discharge instructions No data available for this section [facility] Progress note No data available for this section [facility] [place] Summary Purpose Family History No Family History Records Found Advance Directives No Advanced Directives Records Found Additional Source Comments Care Team (unrecognized sect ion and content) Personnel Name: Ash MAGANA DO Address: [address] [place] [address] Personnel Name: Ash MAGANA DO Address: Address: [address] [place], [place] [id number] Personnel Name: Ash MAGANA DO Address: Address: [address] [place], [place] [id number] Personnel Name: Ash MAGANA DO Address: Address: [address] [place], [place] [id number] Personnel Name: Ash MAGANA DO Address: Address: [address] [place], [place] [id number] Personnel Name: Ash MAGANA DO Address: Address: [address] [place], [place] [id number] Personnel Name: ROSA TERRAZAS CNP Address: Address: [address] [place], [place] [id number] [address] Personnel Name: ROSA TERRAZAS CNP Address: Address: [address] [place], [place] [address] Personnel Name: ROSA TERRAZAS CNP Address: Address: [address] [place] [address] (unrecognized sect ion and content) No Status Records Found INFORMATION SOURCE (unrecogn ized section and content) DATE CREATED AUTHOR 05/13/2023 [facility] FOR RECORDS PERTAINING TO PATIENTS WHO ARE OR HAVE BEEN ENROLLED IN A CHEMICAL DEPENDENCY/SUBSTANCEABUSE PROGRAM, SOME INFORMATION MAY BE OMITTED. This clinical summary was aggregated from multiple sources. Caution should be exercised in using it in the provision of clinical care. This summary normalizes information from multiple sources, and as a consequence, information in this document may materially change the coding, format and clinical context of patient data. In addition, data may be omitted in some cases. CLINICAL DECISIONS SHOULD BE BASED ON THE PRIMARY CLINICAL RECORDS. [employer] [facility] provides no warranty or guarantee of the accuracy or completeness of information in this document.
== END 2023-05-04 12:10 | disposition home or self-care (01) ==
LOC: PST 12:10
PROVIDERS: Visit Provider Urology
DX: Z01.818 Encounter for other preprocedural examination (principal); N40.1 Benign prostatic hyperplasia with lower urinary tract symptoms; E78.5 Hyperlipidemia, unspecified; R97.20 Elevated prostate specific antigen [PSA]; I10 Essential (primary) hypertension

== ENCOUNTER 2023-05-05 11:14 | Day surgery (SDC) | payer MEDICARE, SELFPAY ==
[2023-03-30 08:47] VITALS: BP 147/91; PULSE 66; RESP 18; TEMP 36.4; O2SAT 96; BMI 32.5
[2023-05-05] VITALS (19 sets, daily range): BP systolic 120–164; BP diastolic 70–86; PULSE 59–78; RESP 10–22; TEMP 36.4–36.8; O2SAT 87–97; BMI 33.5
[2023-05-05] MEDS: LACTATED RINGER'S SOLUTION 1,000 ML 50 ML IV (11:42)
[2023-05-05] MEDS: LEVOFLOXACIN IN DEXTROSE 5 % 500 MG/100 ML PIGGYBACK 100 MG IV (14:11)
--- NOTE | 2023-05-05 16:04 | P.URON_ITS ---
Urology Surgery Operative Note Operative Note Procedure Date: 05/05/23 Time Out Performed: yes Pre-op Diagnosis: Benign prostatic hypertrophy refractory to medications Post-op Diagnosis: same as pre-op Procedures performed: #1. Cystoscopy. #2. Transurethral resection of the prostate. Anesthesia: GETA Primary Surgeon: Hans Maradiaga Complications: none Estimated blood loss (mL): 20 Findings: trilobar obstruction. Specimens: prostate chips. Drains: 22 [place]er three-way coud? Gillespie in the bladder Indications for Procedures: this gentleman has bladder outlet obstructive symptoms that are refractory to oral medications. He also has recurrent prostatitis. Endoscopically he is obstructed and urodynamically he is obstructed. He is desirous for transurethral resection of the prostate. He has signed an informed consent after all risks were explained. Some of these include bleeding, infection, anesthesia, urinary incontinence both temporary and permanent, retrograde ejaculation and erectile dysfunction to name a few. Detailed description of Procedure: The patient was brought to the operating room and placed on the operating room table in the supine position. SCDs were placed on the lower extremities and turned on and functioning during the entire case. Timeout was done by all parties in the room. We all agreed upon the patient's identification and the planned procedures for this patient. Genn. anesthesia was then administered. The patient was then repositioned into the modified dorsal lithotomy position. All pressure points were satisfactorily padded. Genitalia were sterilely prepped and draped in usual fashion.I started by passing a 26 [place] Bryan resectoscope with the visual obturator through the urethra and into the bladder. The obturator was removed and I then placed the resecting element with the standard bipolar loop electrode. The ureteral orifices were marked with the loop electrode. I then uniformly resected the median lobe down to the bladder neck level. I then resected posteriorly from the bladder neck to the veru. The left lateral lobe was resected similarly as was the right lateral lobe and the anterior tissue. There was a mild amount of purulence coming from the right lateral lobe. The bladder neck was opened up at the 5 and 7:00 positions. The apex was then opened up carefully. The resection bed was fulgurated. There was no bleeding upon completion. The iFlexMeick evacuator was used several times to get all prostate chips out of the bladder. These were sent for permanent sections. Upon completion with the scope at the apex the prostatic urethra and bladder neck were now wide open. There was no bleeding. There were no chips in the bladder. The scope was then removed. I then placed a 22 [place] three-way coud? Gillespie in the bladder. 30 mmL of fluid was placed in the balloon. It was taped to traction and CBI was started. It irrigated to a light pink color. The anesthetic was then reversed. He was then transferred to a [facility] bed and wheeled to PACU in stable condition.
[2023-05-05] MEDS: SOLIFENACIN SUCCINATE 10 MG TABLET PO (16:05)
[2023-05-05] MEDS: 0.9 % SODIUM CHLORIDE 1,000 ML 80 ML IV ×2 (16:13→16:30)
[2023-05-05] MEDS: SODIUM CHLORIDE IRRIG SOLUTION 3,000 ML 3000 ML IRR ×7 (16:49→23:07)
[2023-05-05] MEDS: HYDROCODONE/ACET 5-325 MG TABLET 1 TAB PO (18:27)
[2023-05-05] MEDS: CEFAZOLIN SODIUM/DEXTROSE,ISO 1 GM/50 ML IV.SOLN IV (20:48)
[2023-05-05] MEDS: TAMSULOSIN HCL 0.4 MG CAPSULE PO (21:17)
[2023-05-06] MEDS: SODIUM CHLORIDE IRRIG SOLUTION 3,000 ML 3000 ML IRR ×3 (00:10→03:12)
[2023-05-06] MEDS: CEFAZOLIN SODIUM/DEXTROSE,ISO 1 GM/50 ML IV.SOLN IV (01:58)
[2023-05-06 03:00] VITALS: BP 154/85; PULSE 66; RESP 18; TEMP 36.8; O2SAT 93
[2023-05-06 04:02] VITALS: O2SAT 98
[2023-05-06 06:00] VITALS: BP 98/62; PULSE 72; TEMP 36.8; O2SAT 92
[2023-05-06] MEDS: 0.9 % SODIUM CHLORIDE 1,000 ML 80 ML IV (06:14)
[2023-05-06] MEDS: LISINOPRIL 20 MG TABLET 40 MG PO (10:23)
[2023-05-06] MEDS: MULTIVITAMIN TABLET 1 TAB PO (10:24)
[2023-05-06] MEDS: TAMSULOSIN HCL 0.4 MG CAPSULE PO (10:24)
[2023-05-06] MEDS: SOLIFENACIN SUCCINATE 10 MG TABLET PO (10:24)
[2023-05-06 11:57] VITALS: O2SAT 97
[2023-05-06 14:00] VITALS: BP 159/93; PULSE 81; RESP 18; TEMP 36.9; O2SAT 91
== END 2023-05-06 16:01 | disposition home or self-care (01) ==
LOC: SURGOUT 15:45 → MS 16:30
PROVIDERS: Visit Provider Urology
PROC: (CPT 52601; principal; 2023-05-05 12:15)
DX: N40.1 Benign prostatic hyperplasia with lower urinary tract symptoms (principal); E78.5 Hyperlipidemia, unspecified; R97.20 Elevated prostate specific antigen [PSA]; I10 Essential (primary) hypertension; N41.9 Inflammatory disease of prostate, unspecified; H91.90 Unspecified hearing loss, unspecified ear; Z87.891 Personal history of nicotine dependence; N52.9 Male erectile dysfunction, unspecified; R35.1 Nocturia; N13.8 Other obstructive and reflux uropathy; R39.14 Feeling of incomplete bladder emptying; E66.09 Other obesity due to excess calories; Z68.32 Body mass index [BMI] 32.0-32.9, adult; R10.31 Right lower quadrant pain
CPT/HCPCS: 52601; 36415; 88305; 94761; 96365; J2704